=== PATIENT | female | born 1940 | race Caucasian/White ===

== ENCOUNTER 2021-12-20 11:58 | Inpatient (IN) ==
[2021-12-20] MEDS ORDERED: 0.9 % SODIUM CHLORIDE 500 ML IV ONE ×2 (13:09→14:53)
--- NOTE | 2021-12-20 13:20 | Emergency Department Note ---
Weakness HPI General Chief complaint: Weakness Stated complaint: failure to thrive, confusion Time Seen by Provider: 12/20/21 12:17 Source: other Mode of arrival: ambulatory Limitations: no limitations History of Present Illness HPI Narrative: Narrative: 81-year-old female with a past medical history of UTI and as below brought in by Adult Protective Services for patient to have very extreme weakness. 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 He has been with her for 40 years. Patient complain of right shoulder pain. No headache dizziness chest pain abdominal pain nausea vomiting constipation or diarrhea fever or chills. Related Data Previous Rx's Medication Instructions Recorded cefdinir 300 mg capsule 300 mg PO BID #10 caps 12/02/21 Allergies Allergy/AdvReac Type Severity Reaction Status Date / Time No Known Drug Allergies Allergy Unverified 04/13/15 12:35 Review of Systems ROS ROS Narrative: Narrative: All systems ED: reviewed and negative except as stated. Constitutional: Reports as per HPI PFSH Narrative Patient History Narrative: Narrative: Medical/Surgical/Family History All Active Problems (Updated 12/20/21 @ 14:53 by Richie Nava MD) Fecal impaction in rectum (Acute) Rhabdomyolysis (Acute) Acute UTI (Acute) Weakness (Acute) Dehydration (Acute) Decubitus ulcer (Acute) Herpes zoster (Acute) Medical History (Updated 12/20/21 @ 14:53 by Richie Nava MD) Fecal impaction in rectum Social History Smoking Status: Unknown if ever smoked Exam Narrative Narrative: Narrative: General Limitations: no limitations General appearance: Present alert and lethargic Head Head: Present atraumatic and normocephalic Eye Eye: Present normal appearance ENT ENT: Present mucous membranes dry Respiratory Respiratory: Present normal lung sounds bilaterally Cardiovascular Cardiovascular: Present regular rate, normal rhythm and normal heart sounds Adbominal Abdominal: Present soft and normal bowel sounds; Absent tenderness, guarding or organomegaly Extremities Extremities: Present tenderness (right shoulder, There a linera vasicular erythema left back/hip with crest formation. There are superficial ulcers on both hips) Neurological Neurological: Present alert Course Course Course Narrative: CBC, CMP, UA, lactic acid, troponin x-ray right shoulder were ordered. Patient was given 500 mL of normal saline IV. WBC is 11.6 with left shift, Lactic acid 2.4. Troponin negative. 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 UA is pending. Chest x-ray ordered. UA is consistent with UTI. Will give patient Cipro IV. Will admit patient to [facility] for further treatment and placement. Vital Signs Vital signs: Vital Signs Pulse Rate 49 L 12/20/21 12:28 Blood Pressure 113/90 12/20/21 12:28 Pulse Oximetry (%) 84 L 12/20/21 12:28 Pulse Rate 107 H 12/20/21 17:18 Respiratory Rate 16 12/20/21 17:18 Blood Pressure 102/50 12/20/21 16:01 Pulse Oximetry (%) 100 12/20/21 17:18 MDM MDM Narrative Medical decision making narrative: Narrative: Lab Data Result diagrams: 12/20/21 13:34 12/20/21 13:34 Labs: Lab Results 12/20/21 12/20/21 12/20/21 Range/Units 13:34 13:34 13:34 WBC 11.6 H (4.5-11.0) K/mcL RBC 4.83 (3.59-5.38) M/mcL Hgb 13.9 (11.2-15.7) g/dL Hct 46.1 H (34.1-44.9) % MCV 95.4 (80.0-100.0) fL MCH 28.8 (26.0-34.0) pg MCHC 30.2 L (31.0-36.0) g/dL RDW 13.9 (11.5-14.5) % Plt Count 403 (140-440) K/mcL MPV 10.9 (8.8-12.5) fL Immature Gran % (Auto) 0.3 (0.0-0.5) % Neut % (Auto) 71.3 (38.0-78.0) % Lymph % (Auto) 17.9 (15.5-49.0) % [place] % (Auto) 7.9 (1.0-12.0) % Eos % (Auto) 1.5 (0.0-7.0) % Baso % (Auto) 1.1 (0.0-2.0) % Lymph # (Auto) 2.07 (1.50-4.80) K/mcL [place] # (Auto) 0.91 H (0.10-0.90) K/mcL Eos # (Auto) 0.17 (0.00-0.70) K/mcL Baso # (Auto) 0.13 (0.00-0.30) K/mcL Immature Gran # 0.04 (0.00-0.05) K/mcl Absolute Neutrophils 8.23 H (1.80-8.00) K/mcL VBG Lactic Acid 2.4 H (0.5-2.0) mmol/L Sodium 158 H (133-145) mmol/L Potassium 4.0 (3.3-5.1) mmol/L Chloride 120 H (96-108) mmol/L Carbon Dioxide 29 (22-30) mmol/L Anion Gap 9.0 (8.0-16.0) BUN 33 H (8-23) mg/dL Creatinine 1.0 (0.6-1.1) mg/dL GFR Calculation 52 Glucose 103 (70-105) mg/dL Calcium 10.0 (8.6-10.4) mg/dL Total Bilirubin 0.5 (0.1-1.0) mg/dL AST 45 H (<32) U/L ALT 60 H (<40) U/L Alkaline Phosphatase 78 (39-117) U/L Troponin T 0.02 (<0.03) ng/mL Total Protein 7.9 (5.9-8.4) gm/dL Albumin 3.4 (3.2-5.2) gm/dL Globulin 4.5 H (2.2-3.7) gm/dL Albumin/Globulin Ratio 0.8 L (1.0-2.3) Urine Color Urine Appearance (Clear) Urine pH (5.0-9.0) Ur Specific [place] (1.000-1.035) Urine Protein (Negative) mg/dL Urine Glucose (UA) (Negative) mg/dL Urine Ketones (Negative) mg/dL Urine Occult Blood (Negative) mg/dL Urine Nitrate (Negative) Urine Bilirubin (Negative) mg/dL Urine Urobilinogen mg/dL Ur Leukocyte Esterase (Negative) /uL Urine RBC (0-3) /hpf Urine WBC (0-4) /hpf Ur Squamous Epith Cells (0-4) /hpf Urine Bacteria (0) /hpf Urine Mucus (None) /hpf Ur Culture Indicated? 12/20/21 Range/Units 14:52 WBC (4.5-11.0) K/mcL RBC (3.59-5.38) M/mcL Hgb (11.2-15.7) g/dL Hct (34.1-44.9) % MCV (80.0-100.0) fL MCH (26.0-34.0) pg MCHC (31.0-36.0) g/dL RDW (11.5-14.5) % Plt Count (140-440) K/mcL MPV (8.8-12.5) fL Immature Gran % (Auto) (0.0-0.5) % Neut % (Auto) (38.0-78.0) % Lymph % (Auto) (15.5-49.0) % [place] % (Auto) (1.0-12.0) % Eos % (Auto) (0.0-7.0) % Baso % (Auto) (0.0-2.0) % Lymph # (Auto) (1.50-4.80) K/mcL [place] # (Auto) (0.10-0.90) K/mcL Eos # (Auto) (0.00-0.70) K/mcL Baso # (Auto) (0.00-0.30) K/mcL Immature Gran # (0.00-0.05) K/mcl Absolute Neutrophils (1.80-8.00) K/mcL VBG Lactic Acid (0.5-2.0) mmol/L Sodium (133-145) mmol/L Potassium (3.3-5.1) mmol/L Chloride (96-108) mmol/L Carbon Dioxide (22-30) mmol/L Anion Gap (8.0-16.0) BUN (8-23) mg/dL Creatinine (0.6-1.1) mg/dL GFR Calculation Glucose (70-105) mg/dL Calcium (8.6-10.4) mg/dL Total Bilirubin (0.1-1.0) mg/dL AST (<32) U/L ALT (<40) U/L Alkaline Phosphatase (39-117) U/L Troponin T (<0.03) ng/mL Total Protein (5.9-8.4) gm/dL Albumin (3.2-5.2) gm/dL Globulin (2.2-3.7) gm/dL Albumin/Globulin Ratio (1.0-2.3) Urine Color Yellow Urine Appearance Hazy A (Clear) Urine pH 5.0 (5.0-9.0) Ur Specific [place] 1.025 (1.000-1.035) Urine Protein 30 A (Negative) mg/dL Urine Glucose (UA) Negative (Negative) mg/dL Urine Ketones Negative (Negative) mg/dL Urine Occult Blood 0.20 (Negative) mg/dL Urine Nitrate Negative (Negative) Urine Bilirubin Negative (Negative) mg/dL Urine Urobilinogen 4.0 A mg/dL Ur Leukocyte Esterase 75 A (Negative) /uL Urine RBC 60 H (0-3) /hpf Urine WBC 18 H (0-4) /hpf Ur Squamous Epith Cells 2 (0-4) /hpf Urine Bacteria None (0) /hpf Urine Mucus Many A (None) /hpf Ur Culture Indicated? yes Discharge Plan Patient/Caregiver Discharge Instructions Pt seen by MOLD INSPECTOR/PA only: No Clinical Impression: Weakness, Dehydration, Decubitus ulcer, Herpes zoster Patient Disposition: Xfer As Inpt ([facility]) Condition: Fair Follow up with: Weston Dempsey DO [Primary Care Provider] - Prescriptions: No Action cefdinir 300 mg capsule 300 mg PO BID Qty: 10 0RF
[2021-12-20 14:13] LABS: Basophils # (Auto) 0.13 K/mcL (0.00-0.30); Basophils % (Auto) 1.1 % (0.0-2.0); Eosinophils # (Auto) 0.17 K/mcL (0.00-0.70); Eosinophils % (Auto) 1.5 % (0.0-7.0); Hematocrit 46.1 % (34.1-44.9); Hemoglobin 13.9 g/dL (11.2-15.7); Lymphocytes # (Auto) 2.07 K/mcL (1.50-4.80); Lymphocytes % (Auto) 17.9 % (15.5-49.0); Mean Cell Volume 95.4 fL (80.0-100.0); Mean Corpuscular HGB Conc 30.2 g/dL (31.0-36.0); Mean Platelet Volume 10.9 fL (8.8-12.5); Monocytes # (Auto) 0.91 K/mcL (0.10-0.90); Monocytes % (Auto) 7.9 % (1.0-12.0); Neutrophils % (Auto) 71.3 % (38.0-78.0); Platelet Count 403 K/mcL (140-440); RBC 4.83 M/mcL (3.59-5.38); Red Cell Distribution Width 13.9 % (11.5-14.5); WBC 11.6 K/mcL (4.5-11.0)
--- NOTE | 2021-12-20 14:30 | XRay Report ---
CLINICAL INFORMATION: Pain COMPARISON: None. 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 No osseous abnormality. Soft tissues are normal. IMPRESSION: Degeneration Interpreted and Authenticated by: Maico Vazquez 12/20/21
[2021-12-20 14:37] LABS: ALT/SGPT 60 U/L (<40); AST/SGOT 45 U/L (<32); Albumin 3.4 gm/dL (3.2-5.2); Albumin/Globulin Ratio 0.8 (1.0-2.3); Alkaline Phosphatase 78 U/L (39-117); Bilirubin,Total 0.5 mg/dL (0.1-1.0); Blood Urea Nitrogen 33 mg/dL (8-23); Carbon Dioxide 29 mmol/L (22-30); Chloride 120 mmol/L (96-108); Globulin 4.5 gm/dL (2.2-3.7); Glomerular Filtration Rate 52; Glucose 103 mg/dL (70-105)
--- NOTE | 2021-12-20 15:10 | XRay Report ---
CLINICAL INFORMATION: Leukocytosis COMPARISON: None. TECHNIQUE: Portable FINDINGS: The heart size, mediastinum and pulmonary vessels are unremarkable. The lungs are clear right diaphragm is moderately elevated as before. There are no effusions. bilateral mastectomy noted.. IMPRESSION: No acute disease. Moderate chronic elevation right diaphragm Interpreted and Authenticated by: Maico Vazquez 12/20/21
[2021-12-20 16:16] LABS: Appearance,Urine HAZY (Clear); Bilirubin,Urine Negative (Negative); Color,Urine Yellow; Culture Indicated,Urine yes; Glucose,Urine (UA) Negative (Negative); Ketones,Urine Negative (Negative); Leukocyte Esterase,Urine 75 /uL (Negative); Mucus,Urine MANY /hpf; Nitrate,Urine Negative (Negative); Protein,Urine 30 mg/dL (Negative); Specific Gravity,Urine 1.025 (1.000-1.035); Urine RBC 60 /hpf (0-3); Urine Squamous Epithelial Cell 2 /hpf (0-4); Urine WBC 18 /hpf (0-4)
[2021-12-20] MEDS ORDERED: LEVOFLOXACIN 750 MG/150 ML BAG IV ONE (16:55)
--- NOTE | 2021-12-20 18:07 | Internal Med History&Physical ---
HPI History of Present Illness Patient information: Note initiated : 12/20/21 at 5:58 pm Service Date, if different from initiated Date: [] Patient: Emerita Giron a 81 y/o F admitted on for failure to thrive, confusion. Chief Complaint: [weakness, confusion] Chief complaint: weakness, confusion History of present illness: Ms. Giron is a 81 year old F no past medical history, presenting with weakness and confusions. The following history is severely limited by patient's clinical situations and lack of caregiver or family at the bedside. It was reported that patient's Drop of in the ED due to weakness and confusions. Patient is unable to give any further history. Tight patient is only making incomprehensible words upon questioning. It is unclear what is the patient's baseline mentations. Vital signs significant for tachycardia and tachypnea heart rate and rate of breathing in the 1 teens and mid 20s, respectively. Labs significant for leukocytosis with WBC 11.6. Serum sodium level 158. Serum chloride 120. Lactic acid 2.4. Urinalysis suggest the presence of urinary tract infections. Chest x-ray unremarkable. Review of Systems ROS unobtainable: due to mental status PFSH PFSH All Active Problems (Updated 12/20/21 @ 18:08 by Jerson Peraza MD) Clinical sepsis (Acute) Adult failure to thrive (Acute) Delirium (Acute) Hypernatremia (Acute) Fecal impaction in rectum (Acute) Rhabdomyolysis (Acute) Acute UTI (Acute) Weakness (Acute) Dehydration (Acute) Decubitus ulcer (Acute) Herpes zoster (Acute) Medical History (Updated 12/20/21 @ 18:08 by Jerson Peraza MD) Fecal impaction in rectum Social History smoking status: Unknown if ever smoked MEDS/ALLERGIES Home Medications and Allergies Home Medications Medication Instructions Recorded Confirmed Type cefdinir 300 mg capsule 300 mg PO BID #10 caps 12/02/21 Rx Allergies Allergy/AdvReac Type Severity Reaction Status Date / Time No Known Drug Allergies Allergy Unverified 04/13/15 12:35 EXAM Constitutional Vitals: Pulse Resp BP Pulse Ox 110 H 18 102/50 100 12/20/21 17:48 12/20/21 17:48 12/20/21 16:01 12/20/21 17:48 General appearance: disheveled, no acute distress and thin; no cooperative Head Head exam: Present atraumatic and normocephalic Eye Eye exam: Present EOMI and PERRL ENT ENT exam: Present mucous membranes moist, normal exam and normal external ear exam Neck Neck exam: Present normal inspection; Absent lymphadenopathy, tenderness or thyromegaly Respiratory Respiratory exam: Absent accessory muscle use, respiratory distress or wheezes Cardiovascular Cardiovascular exam: Present normal rate and rhythm; Absent JVD GI/Abdominal GI/Abdominal exam: Present normal bowel sounds and soft; Absent organomegaly or tenderness Extremities Exam Extremities exam: Present full ROM, normal capillary refill and normal inspection; Absent tenderness Neurological Exam Neurological exam: Present alert, altered and CN II-XII intact; Absent motor sensory deficit or oriented X3 Expanded Neurological Exam Coma Scale Verbal Response: Incomprehensible Psychiatric Additional comments: unable to assess due to clinical situations Skin Skin exam: Present dry and intact DATA Data Completed and Pending Labs: Labs from last 24 hours 12/20/21 12/20/21 12/20/21 14:52 13:34 13:34 WBC RBC Hgb Hct MCV MCH MCHC RDW Plt Count MPV Immature Gran % (Auto) Neut % (Auto) Lymph % (Auto) [place] % (Auto) Eos % (Auto) Baso % (Auto) Lymph # (Auto) [place] # (Auto) Eos # (Auto) Baso # (Auto) Immature Gran # Absolute Neutrophils VBG Lactic Acid 2.4 H Sodium 158 H Potassium 4.0 Chloride 120 H Carbon Dioxide 29 Anion Gap 9.0 BUN 33 H Creatinine 1.0 GFR Calculation 52 Glucose 103 Calcium 10.0 Total Bilirubin 0.5 AST 45 H ALT 60 H Alkaline Phosphatase 78 Troponin T 0.02 Total Protein 7.9 Albumin 3.4 Globulin 4.5 H Albumin/Globulin Ratio 0.8 L Urine Color Yellow Urine Appearance Hazy A Urine pH 5.0 Ur Specific [place] 1.025 Urine Protein 30 A Urine Glucose (UA) Negative Urine Ketones Negative Urine Occult Blood 0.20 Urine Nitrate Negative Urine Bilirubin Negative Urine Urobilinogen 4.0 A Ur Leukocyte Esterase 75 A Urine RBC 60 H Urine WBC 18 H Ur Squamous Epith Cells 2 Urine Bacteria None Urine Mucus Many A Ur Culture Indicated? yes 12/20/21 13:34 WBC 11.6 H RBC 4.83 Hgb 13.9 Hct 46.1 H MCV 95.4 MCH 28.8 MCHC 30.2 L RDW 13.9 Plt Count 403 MPV 10.9 Immature Gran % (Auto) 0.3 Neut % (Auto) 71.3 Lymph % (Auto) 17.9 [place] % (Auto) 7.9 Eos % (Auto) 1.5 Baso % (Auto) 1.1 Lymph # (Auto) 2.07 [place] # (Auto) 0.91 H Eos # (Auto) 0.17 Baso # (Auto) 0.13 Immature Gran # 0.04 Absolute Neutrophils 8.23 H VBG Lactic Acid Sodium Potassium Chloride Carbon Dioxide Anion Gap BUN Creatinine GFR Calculation Glucose Calcium Total Bilirubin AST ALT Alkaline Phosphatase Troponin T Total Protein Albumin Globulin Albumin/Globulin Ratio Urine Color Urine Appearance Urine pH Ur Specific [place] Urine Protein Urine Glucose (UA) Urine Ketones Urine Occult Blood Urine Nitrate Urine Bilirubin Urine Urobilinogen Ur Leukocyte Esterase Urine RBC Urine WBC Ur Squamous Epith Cells Urine Bacteria Urine Mucus Ur Culture Indicated? A/P Assessment and plan (1) Acute UTI: Status: Acute (2) Dehydration: Status: Acute (3) Hypernatremia: Status: Acute (4) Delirium: Status: Acute (5) Adult failure to thrive: Status: Acute (6) Clinical sepsis: Status: Acute Sepsis Sepsis Identified: Yes Time Zero: . Narrative A/P Narrative: Assessment and Plans: 1. UTI with clinical sepsis: Inpatient PCU s/p 2L NS bolus given in the ED, to be followed by 1/2NS@75cc/hr Serial lactic acid Procalcitonin Blood culture Urine culture cbc w/ auto diff in the morning to trend WBC Rocephin Physical therapy Occupational therapy 2. Acute delirium: DDx: dementia, undiagnosed/underdiagnosed Treat reversible causes such as infection, see #1 Frequent reorientation during the day Screening for serum ammonia level CT head w/o 3. Adult failure to thrive: Adult protective service notified Dietitian referral 4. Hypernatremia with dehydration: s/p 2L NS bolus given in the ED, to be followed by 1/2NS@75cc/hr Daily CMP to trend serum sodium level GI ppx: not currently indicated DVT ppx: Lovenox Code status: Full Prognosis: guarded Disposition: inpatient PCU; PT OT Time Spent With Patient Time: Total time spent is greater than 50% in coordination of care (as documented) at patient's floor/unit and/or counseling patient: Total time spent with greater than 50% in coordination of care (as documented) at patient's floor/unit and/or counseling patient:: 50 - 70 minutes
[2021-12-20] MEDS ORDERED: ONDANSETRON 4 MG/2 ML VIAL IV PRN (19:14)
[2021-12-20] MEDS ORDERED: SENNOSIDES 1 TABLET PO PRN (19:14)
[2021-12-20] MEDS ORDERED: IPRATROPIUM/ALBUTEROL 3 ML AMPUL.NEB NEB PRN (19:14)
[2021-12-20] MEDS ORDERED: LACTULOSE 20 GM/30 ML ORAL.SOL PO PRN (19:14)
[2021-12-20] MEDS ORDERED: cefTRIAXone 1 GM in DEXTROSE 5% IN WATER 50 ML IV SCH (19:14)
[2021-12-20] MEDS ORDERED: diphenhydrAMINE 25 MG CAPSULE PO PRN (19:18)
[2021-12-20] MEDS: 0.45 % SODIUM CHLORIDE 1,000 ML IV SCH (19:39)
[2021-12-20] MEDS ORDERED: morphine 2 MG/ML VIAL IV PRN (19:40)
[2021-12-20] MEDS: cefTRIAXone 1 GM VIAL IV SCH (20:10)
[2021-12-20] MEDS: 0.9 % SODIUM CHLORIDE 10 ML SYRINGE IV SCH (20:11)
[2021-12-20] MEDS: DOCUSATE SODIUM 100 MG CAPSULE PO SCH (20:11)
[2021-12-21] MEDS: 0.9 % SODIUM CHLORIDE 10 ML SYRINGE IV SCH ×3 (05:13→22:45)
[2021-12-21] MEDS: cefTRIAXone 1 GM VIAL IV SCH (09:43)
[2021-12-21] MEDS: ENOXAPARIN 30 MG/0.3 ML SYRINGE SQ SCH (09:43)
[2021-12-21] MEDS: DOCUSATE SODIUM 100 MG CAPSULE PO SCH ×3 (09:43→21:16)
[2021-12-21] MEDS: ACETAMINOPHEN 325 MG TABLET PO PRN (09:43)
[2021-12-21 10:00] LABS: Basophils % (Auto) 1.2 % (0.0-2.0); Eosinophils # (Auto) 0.18 K/mcL (0.00-0.70); Eosinophils % (Auto) 2.1 % (0.0-7.0); Lymphocytes # (Auto) 1.61 K/mcL (1.50-4.80); Lymphocytes % (Auto) 19.1 % (15.5-49.0); Mean Cell Volume 98.3 fL (80.0-100.0); Mean Platelet Volume 11.4 fL (8.8-12.5); Monocytes # (Auto) 0.76 K/mcL (0.10-0.90); Neutrophils % (Auto) 68.2 % (38.0-78.0); Platelet Count 320 K/mcL (140-440); RBC 4.07 M/mcL (3.59-5.38); Red Cell Distribution Width 13.9 % (11.5-14.5); WBC 8.4 K/mcL (4.5-11.0)
[2021-12-21 10:03] LABS: ALT/SGPT 43 U/L (<40); AST/SGOT 33 U/L (<32); Albumin 2.9 gm/dL (3.2-5.2); Albumin/Globulin Ratio 0.8 (1.0-2.3); Alkaline Phosphatase 65 U/L (39-117); Bilirubin,Total 0.5 mg/dL (0.1-1.0); Blood Urea Nitrogen 26 mg/dL (8-23); Carbon Dioxide 24 mmol/L (22-30); Chloride 121 mmol/L (96-108); Globulin 3.6 gm/dL (2.2-3.7); Glomerular Filtration Rate 52; Glucose 85 mg/dL (70-105); Phosphorous 2.7 mg/dL (2.5-4.5)
--- NOTE | 2021-12-21 14:20 | Internal Med Progress Note ---
SUBJECTIVE Subjective Patient information: Note initiated : 12/21/21 at 2:14 pm Service Date, if different from initiated Date: [] Patient: Emerita Giron a 81 y/o F admitted on 12/20/21 for failure to thrive, confusion. Chief Complaint: [] Interval history: Ms. Giron is a 81 year old F no past medical history, presenting with weakness and confusions. The following history is severely limited by patient's clinical situations and lack of caregiver or family at the bedside. It was reported that patient's Drop of in the ED due to weakness and confusions. Patient is unable to give any further history. Tight patient is only making incomprehensible words upon questioning. It is unclear what is the patient's baseline mentations. Vital signs significant for tachycardia and tachypnea heart rate and rate of breathing in the 1 teens and mid 20s, respectively. Labs significant for leukocytosis with WBC 11.6. Serum sodium level 158. Serum chloride 120. Lactic acid 2.4. Urinalysis suggest the presence of urinary tract infections. Chest x-ray unremarkable. 12/21: Serum sodium level 154 this morning, down from 158 at the time of admissions. Serum ammonia level 32. Blood and urine cultures no growth to date. Patient is lethargic and nonverbal this afternoon. Pending physical therapy Occupational Therapy evaluation and treatment for placement pending. Continue 1/2NS@50cc/hr. Repeat serum sodium this afternoon @3pm. Adult protective service investigation pending. Constitutional Vitals: Vital Signs Temp Pulse Resp BP Pulse Ox O2 Del Method O2 Flow Rate 36.3 C 93 H 17 116/72 96 0 12/21/21 12:04 12/21/21 12:04 12/21/21 12:04 12/21/21 12:04 12/21/21 12:04 12/21/21 12:04 12/21/21 00:02 Period Temp Pulse Resp BP Sys/Beard Pulse Ox O2 Del Method O2 Flow Rate Last 24 Hr 36.3 C-36.8 C 93-140 13-25 90-127/47-105 86-100 Room Air-Room Air 0-0 Intake and Output 12/21/21 12/21/21 12/21/21 05:59 13:59 21:59 Intake Total 200 Output Total 1 1 Balance -1 199 Weight 38.374 kg Patient Weight 12/22/21 05:59 Weight 38.374 kg Intake & Output: Intake & Output 12/21/21 12/21/21 12/21/21 05:59 13:59 21:59 Intake Total 200 Output Total 1 1 Balance -1 199 Weight 38.374 kg Intake: Nourishment/Supplement quantity 200 (ml) Output: # of times incontinent of urine 1 1 Other: Meal Lunch Percent of Meal Consumed 10% Feeding Ability Total Assistance Nourishment/Supplement name Ensure Urine Appearance Clear Urine Color Dark Yellow Urine Odor Strong # Voids 1 # Bowel Movements 0 General appearance: disheveled and thin Head Head exam: Present atraumatic and normal inspection Eye Eye exam: Present normal appearance ENT ENT exam: Present mucous membranes moist, normal exam and normal external ear exam Neck Neck exam: Present normal inspection Respiratory Respiratory exam: Present normal respiratory exam Cardiovascular Cardiovascular exam: Present normal rate and rhythm GI/Abdominal GI/Abdominal exam: Present normal bowel sounds Back Exam Back exam: Present normal inspection Neurological Exam Neurological exam: Present alert and altered; Absent oriented X3 Additional comments: non verbal Psychiatric Additional comments: Not assessed due to clinical situations Skin Skin exam: Present intact and warm OBJ DATA Labs CBC & Chem 7: 12/21/21 05:04 12/21/21 05:04 Labs: Abnormal Lab Results 12/21/21 12/21/21 12/20/21 05:04 05:04 14:52 WBC Hct MCHC 30.0 L [place] # (Auto) Absolute Neutrophils VBG Lactic Acid Sodium 154 H Chloride 121 H BUN 26 H AST 33 H ALT 43 H Albumin 2.9 L Globulin Albumin/Globulin Ratio 0.8 L Urine Appearance Hazy A Urine Protein 30 A Urine Urobilinogen 4.0 A Ur Leukocyte Esterase 75 A Urine RBC 60 H Urine WBC 18 H Urine Mucus Many A 12/20/21 12/20/21 13:34 13:34 WBC 11.6 H Hct 46.1 H MCHC 30.2 L [place] # (Auto) 0.91 H Absolute Neutrophils 8.23 H VBG Lactic Acid 2.4 H Sodium 158 H Chloride 120 H BUN 33 H AST 45 H ALT 60 H Albumin Globulin 4.5 H Albumin/Globulin Ratio 0.8 L Urine Appearance Urine Protein Urine Urobilinogen Ur Leukocyte Esterase Urine RBC Urine WBC Urine Mucus Meds: Medications Acetaminophen (Acetaminophen 325 Mg Tablet) 650 mg PO Q6HP PRN; Protocol PRN Reason: Per Pain Protocol/Fever > 101 Last Admin: 12/21/21 09:43 Dose: 650 mg Albuterol/Ipratropium (Ipratropium/Albuterol 3 Ml Ampul.Neb) 3 ml NEB Q4HRT PRN PRN Reason: Wheezing Carvedilol (Carvedil[facility] 12.5 Mg Tablet) [facility] Ceft[facility]ax[facility] Sodium (Ceftriaxone 1 Gm Vial) 1 gm IV Q24H [facility] Last Admin: 12/21/21 09:43 Dose: 1 gm Diphenhydramine HCl (Diphenhydramine 25 Mg Capsule) 25 mg PO Q6HP PRN PRN Reason: Itching Docusate Sodium (Docusate Sodium 100 Mg Capsule) 100 mg PO BID [facility] Last Admin: 12/21/21 10:20 Dose: Not Given Enoxaparin Sodium (Enoxaparin 30 Mg/0.3 Ml Syringe) 30 mg SQ DAILY [facility] Last Admin: 12/21/21 09:43 Dose: 30 mg Sodium Chloride (Sodium Chloride 0.45%) 1,000 mls @ 50 mls/hr IV .Q20H [facility] Last Admin: 12/20/21 19:39 Dose: 50 mls/hr Lactulose (Lactulose 20 Gm/30 Ml Oral.Sarah) 10 gm PO DAILYP PRN PRN Reason: Constipation Morphine Sulfate (Morphine 2 Mg/Ml Vial) 2 mg IV Q4HP PRN; Protocol PRN Reason: Per Pain Protocol Last Admin: 12/20/21 20:10 Dose: 2 mg Ondansetron HCl (Ondansetron 4 Mg/2 Ml Vial) 4 mg IV Q4HP PRN; Protocol PRN Reason: Nausea And Vomiting Senna (Sennosides 1 Tablet) 2 tab PO HSP PRN PRN Reason: Constipation Sodium Chloride (0.9 % Sodium Chloride 10 Ml Syringe) 10 ml IV Q8 [facility] Last Admin: 12/21/21 05:13 Dose: Not Given A/P Assessment and plan (1) Acute UTI: Status: Acute (2) Dehydration: Status: Acute (3) Hypernatremia: Status: Acute (4) Delirium: Status: Acute (5) Adult failure to thrive: Status: Acute (6) Clinical sepsis: Status: Acute Narrative A/P Narrative: Assessment and Plans: 1. UTI with clinical sepsis: Inpatient PCU 1/2NS@50cc/hr Serial lactic acid Procalcitonin Blood culture, no growth to date Urine culture, no growth to date cbc w/ auto diff in the morning to trend WBC Rocephin Physical therapy Occupational therapy 2. Acute delirium: DDx: dementia, undiagnosed/underdiagnosed Treat reversible causes such as infection, see #1 Frequent reorientation during the day Screening for serum ammonia level-->32, within normal limits CT head w/o--> unable to perform 3. Adult failure to thrive: Adult protective service notified Dietitian referral Speech therapy 4. Hypernatremia with dehydration: s/p 2L NS bolus given in the ED, to be followed by 1/2NS@50cc/hr Daily CMP to trend serum sodium level Will also repeat serum sodium level this afternoon @3pm GI ppx: not currently indicated DVT ppx: Lovenox Code status: Full Prognosis: guarded Disposition: inpatient PCU; PT OT SLT Time Spent With Patient Time: Total time spent is greater than 50% in coordination of care (as documented) at patient's floor/unit and/or counseling patient: Total time spent with greater than 50% in coordination of care (as documented) at patient's floor/unit and/or counseling patient:: 25 - 35 minutes
[2021-12-21] MEDS: 0.45 % SODIUM CHLORIDE 1,000 ML IV SCH (15:04)
[2021-12-21] MEDS: CARVEDILOL 12.5 MG TABLET PO SCH (17:49)
[2021-12-22] MEDS: 0.9 % SODIUM CHLORIDE 10 ML SYRINGE IV SCH ×3 (05:15→21:35)
[2021-12-22 07:04] LABS: Basophils # (Auto) 0.08 K/mcL (0.00-0.30); Eosinophils # (Auto) 0.29 K/mcL (0.00-0.70); Eosinophils % (Auto) 3.7 % (0.0-7.0); Hematocrit 36.8 % (34.1-44.9); Lymphocytes % (Auto) 25.4 % (15.5-49.0); Mean Cell Volume 97.4 fL (80.0-100.0); Mean Corpuscular HGB Conc 29.9 g/dL (31.0-36.0); Mean Platelet Volume 11.2 fL (8.8-12.5); Monocytes # (Auto) 0.67 K/mcL (0.10-0.90); Monocytes % (Auto) 8.5 % (1.0-12.0); Platelet Count 278 K/mcL (140-440); RBC 3.78 M/mcL (3.59-5.38); Red Cell Distribution Width 13.9 % (11.5-14.5); WBC 7.9 K/mcL (4.5-11.0)
[2021-12-22 07:28] LABS: ALT/SGPT 36 U/L (<40); AST/SGOT 26 U/L (<32); Albumin 2.7 gm/dL (3.2-5.2); Albumin/Globulin Ratio 0.8 (1.0-2.3); Alkaline Phosphatase 60 U/L (39-117); Bilirubin,Total 0.4 mg/dL (0.1-1.0); Blood Urea Nitrogen 23 mg/dL (8-23); Calcium 8.7 mg/dL (8.6-10.4); Carbon Dioxide 22 mmol/L (22-30); Chloride 117 mmol/L (96-108); Globulin 3.4 gm/dL (2.2-3.7); Glomerular Filtration Rate 68; Glucose 86 mg/dL (70-105); Phosphorous 1.8 mg/dL (2.5-4.5)
[2021-12-22] MEDS: ACETAMINOPHEN 325 MG TABLET PO PRN (08:13)
[2021-12-22] MEDS: ENOXAPARIN 30 MG/0.3 ML SYRINGE SQ SCH (08:13)
[2021-12-22] MEDS: DOCUSATE SODIUM 100 MG CAPSULE PO SCH ×2 (08:13→21:35)
[2021-12-22] MEDS: CARVEDILOL 12.5 MG TABLET PO SCH ×2 (08:13→17:14)
[2021-12-22] MEDS: cefTRIAXone 1 GM VIAL IV SCH (08:55)
[2021-12-22] MEDS: 0.45 % SODIUM CHLORIDE 1,000 ML IV SCH (11:04)
[2021-12-22] MEDS ORDERED: POTASSIUM PHOSPHATE 20 MEQ in DEXTROSE 5% IN WATER 250 ML IV ONE (13:12)
--- NOTE | 2021-12-22 13:17 | Internal Med Progress Note ---
SUBJECTIVE Subjective Patient information: Note initiated : 12/22/21 at 1:13 pm Service Date, if different from initiated Date: [] Patient: Emerita Giron a 81 y/o F admitted on 12/20/21 for failure to thrive, confusion. Chief Complaint: [] Interval history: Ms. Giron is a 81 year old F no past medical history, presenting with weakness and confusions. The following history is severely limited by patient's clinical situations and lack of caregiver or family at the bedside. It was reported that patient's Drop of in the ED due to weakness and confusions. Patient is unable to give any further history. Tight patient is only making incomprehensible words upon questioning. It is unclear what is the patient's baseline mentations. Vital signs significant for tachycardia and tachypnea heart rate and rate of breathing in the 1 teens and mid 20s, respectively. Labs significant for leukocytosis with WBC 11.6. Serum sodium level 158. Serum chloride 120. Lactic acid 2.4. Urinalysis suggest the presence of urinary tract infections. Chest x-ray unremarkable. 12/21: Serum sodium level 154 this morning, down from 158 at the time of admissions. Serum ammonia level 32. Blood and urine cultures no growth to date. Patient is lethargic and nonverbal this afternoon. Pending physical therapy Occupational Therapy evaluation and treatment for placement pending. Continue 1/2NS@50cc/hr. Repeat serum sodium this afternoon @3pm. Adult protective service investigation pending. 12/22: Serum sodium level 149 this morning, down from 154 at the time of admissions. Serum phosphorous level 1.8. Blood and urine cultures no growth to date. P ending physical therapy Occupational Therapy evaluation and treatment for placement pending. Continue 1/2NS@50cc/hr. Repeat serum sodium this afternoon @3pm. Adult protective service investigation pending. Constitutional Vitals: Vital Signs Temp Pulse Resp BP Pulse Ox O2 Del Method O2 Flow Rate 36.3 C 80 14 102/54 99 0 12/22/21 12:00 12/22/21 00:01 12/22/21 12:00 12/22/21 12:00 12/22/21 12:00 12/22/21 05:31 12/21/21 00:02 Period Temp Pulse Resp BP Sys/Beard Pulse Ox O2 Del Method O2 Flow Rate Last 24 Hr 36.1 C-37.1 C 80-107 14-26 80-150/49-109 91-100 Room Air-Room Air Intake and Output 12/21/21 12/22/21 12/22/21 21:59 05:59 13:59 Intake Total 1240 1840 Output Total 1 2 Balance 1239 -2 1840 Weight 39.236 kg Intake & Output: Intake & Output 12/21/21 12/22/21 12/22/21 21:59 05:59 13:59 Intake Total 1240 1840 Output Total 1 2 Balance 1239 -2 1840 Weight 39.236 kg Intake: Nourishment/Supplement quantity 240 480 (ml) IV 1000 1000 Sodium Chloride 0.45% 1,000 ml 1000 1000 @ 50 mls/hr IV .Q20H [facility] Rx#: [id number] Oral 360 Output: # of times incontinent of urine 1 2 Other: Meal Dinner Apple sauce Breakfast Percent of Meal Consumed 75% 100% 95 Feeding Ability Total Assistance Total Assistance Independent Nourishment/Supplement name Magic cup and ensure Ensure and Magic Cup Urine Appearance Clear Urine Color Dark Yellow Urine Odor Foul # Bowel Movements 0 Head Head exam: Present atraumatic and normal inspection Eye Eye exam: Present normal appearance ENT ENT exam: Present mucous membranes moist, normal exam and normal external ear exam Neck Neck exam: Present normal inspection Respiratory Respiratory exam: Present normal respiratory exam Cardiovascular Cardiovascular exam: Present normal rate and rhythm GI/Abdominal GI/Abdominal exam: Present normal bowel sounds Back Exam Back exam: Present normal inspection Neurological Exam Neurological exam: Present alert and altered; Absent oriented X3 Skin Skin exam: Present intact and warm OBJ DATA Labs CBC & Chem 7: 12/22/21 05:20 12/22/21 05:20 Labs: Abnormal Lab Results 12/22/21 12/22/21 12/21/21 05:20 05:20 15:51 WBC Hgb 11.0 L Hct MCHC 29.9 L [place] # (Auto) Absolute Neutrophils VBG Lactic Acid Sodium 149 H 157 H Chloride 117 H BUN Phosphorus 1.8 L AST ALT Albumin 2.7 L Globulin Albumin/Globulin Ratio 0.8 L Urine Appearance Urine Protein Urine Urobilinogen Ur Leukocyte Esterase Urine RBC Urine WBC Urine Mucus 12/21/21 12/21/21 12/20/21 05:04 05:04 14:52 WBC Hgb Hct MCHC 30.0 L [place] # (Auto) Absolute Neutrophils VBG Lactic Acid Sodium 154 H Chloride 121 H BUN 26 H Phosphorus AST 33 H ALT 43 H Albumin 2.9 L Globulin Albumin/Globulin Ratio 0.8 L Urine Appearance Hazy A Urine Protein 30 A Urine Urobilinogen 4.0 A Ur Leukocyte Esterase 75 A Urine RBC 60 H Urine WBC 18 H Urine Mucus Many A 12/20/21 12/20/21 13:34 13:34 WBC 11.6 H Hgb Hct 46.1 H MCHC 30.2 L [place] # (Auto) 0.91 H Absolute Neutrophils 8.23 H VBG Lactic Acid 2.4 H Sodium 158 H Chloride 120 H BUN 33 H Phosphorus AST 45 H ALT 60 H Albumin Globulin 4.5 H Albumin/Globulin Ratio 0.8 L Urine Appearance Urine Protein Urine Urobilinogen Ur Leukocyte Esterase Urine RBC Urine WBC Urine Mucus Meds: Medications Acetaminophen (Acetaminophen 325 Mg Tablet) 650 mg PO Q6HP PRN; Protocol PRN Reason: Per Pain Protocol/Fever > 101 Last Admin: 12/22/21 08:13 Dose: 650 mg Albuterol/Ipratropium (Ipratropium/Albuterol 3 Ml Ampul.Neb) 3 ml NEB Q4HRT PRN PRN Reason: Wheezing Carvedilol ([facility] 12.5 Mg [facility]t) [facility] Last Admin: 12/22/21 08:13 Dose: 12.5 mg Ceftriaxone Sodium (Ceftriaxone 1 Gm Vial) 1 gm IV Q24H [facility] Last Admin: 12/22/21 08:55 Dose: 1 gm Diphenhydramine HCl (Diphenhydramine 25 Mg Capsule) 25 mg PO Q6HP PRN PRN Reason: Itching Last Admin: 12/21/21 21:56 Dose: 25 mg Docusate Sodium (Docusate Sodium 100 Mg Capsule) 100 mg PO BID [facility] Last Admin: 12/22/21 08:13 Dose: 100 mg Enoxaparin Sodium (Enoxaparin 30 Mg/0.3 Ml Syringe) 30 mg SQ DAILY [facility] Last Admin: 12/22/21 08:13 Dose: 30 mg Sodium Chloride (Sodium Chloride 0.45%) 1,000 mls @ 50 mls/hr IV .Q20H [facility] Last Admin: 12/22/21 11:04 Dose: 50 mls/hr Lactulose (Lactulose 20 Gm/30 Ml Oral.Sarah) 10 gm PO DAILYP PRN PRN Reason: Constipation Morphine Sulfate (Morphine 2 Mg/Ml Vial) 2 mg IV Q4HP PRN; Protocol PRN Reason: Per Pain Protocol Last Admin: 12/20/21 20:10 Dose: 2 mg Ondansetron HCl (Ondansetron 4 Mg/2 Ml Vial) 4 mg IV Q4HP PRN; Protocol PRN Reason: Nausea And Vomiting Senna (Sennosides 1 Tablet) 2 tab PO HSP PRN PRN Reason: Constipation Sodium Chloride (0.9 % Sodium Chloride 10 Ml Syringe) 10 ml IV Q8 [facility] Last Admin: 12/22/21 05:15 Dose: 10 ml A/P Assessment and plan (1) Acute UTI: Status: Acute (2) Dehydration: Status: Acute (3) Hypernatremia: Status: Acute (4) Delirium: Status: Acute (5) Adult failure to thrive: Status: Acute (6) Clinical sepsis: Status: Acute Narrative A/P Narrative: Assessment and Plans: 1. UTI with clinical sepsis: Inpatient PCU 1/2NS@50cc/hr Serial lactic acid Procalcitonin Blood culture, no growth to date Urine culture, no growth to date cbc w/ auto diff in the morning to trend WBC Rocephin Physical therapy Occupational therapy 2. Acute delirium: DDx: dementia, undiagnosed/underdiagnosed Treat reversible causes such as infection, see #1 Frequent reorientation during the day Screening for serum ammonia level-->32, within normal limits CT head w/o--> unable to perform 3. Adult failure to thrive: Adult protective service notified Dietitian referral Speech therapy 4. Hypernatremia with dehydration: s/p 2L NS bolus given in the ED, to be followed by 1/2NS@50cc/hr Daily CMP to trend serum sodium level Will also repeat serum sodium level this afternoon @3pm GI ppx: not currently indicated DVT ppx: Lovenox Code status: Full Prognosis: guarded Disposition: inpatient PCU; PT OT SLT Time Spent With Patient Time: Total time spent is greater than 50% in coordination of care (as documented) at patient's floor/unit and/or counseling patient: Total time spent with greater than 50% in coordination of care (as documented) at patient's floor/unit and/or counseling patient:: 25 - 35 minutes
[2021-12-22 16:20] LABS: Blood Urea Nitrogen 26 mg/dL (8-23); Calcium 8.3 mg/dL (8.6-10.4); Carbon Dioxide 23 mmol/L (22-30); Chloride 113 mmol/L (96-108); Glomerular Filtration Rate 68; Glucose 102 mg/dL (70-105)
[2021-12-23] MEDS: 0.9 % SODIUM CHLORIDE 10 ML SYRINGE IV SCH ×3 (05:28→20:06)
[2021-12-23 07:29] LABS: Basophils # (Auto) 0.08 K/mcL (0.00-0.30); Basophils % (Auto) 1.1 % (0.0-2.0); Eosinophils # (Auto) 0.34 K/mcL (0.00-0.70); Eosinophils % (Auto) 4.8 % (0.0-7.0); Hematocrit 33.8 % (34.1-44.9); Hemoglobin 10.5 g/dL (11.2-15.7); Lymphocytes # (Auto) 2.23 K/mcL (1.50-4.80); Lymphocytes % (Auto) 31.2 % (15.5-49.0); Mean Cell Volume 94.2 fL (80.0-100.0); Mean Corpuscular HGB Conc 31.1 g/dL (31.0-36.0); Mean Platelet Volume 11.7 fL (8.8-12.5); Neutrophils % (Auto) 55.6 % (38.0-78.0); Platelet Count 227 K/mcL (140-440); RBC 3.59 M/mcL (3.59-5.38); Red Cell Distribution Width 13.6 % (11.5-14.5); WBC 7.1 K/mcL (4.5-11.0)
[2021-12-23 08:13] LABS: ALT/SGPT 27 U/L (<40); AST/SGOT 18 U/L (<32); Albumin 2.5 gm/dL (3.2-5.2); Albumin/Globulin Ratio 0.8 (1.0-2.3); Alkaline Phosphatase 55 U/L (39-117); Bilirubin,Total 0.2 mg/dL (0.1-1.0); Blood Urea Nitrogen 19 mg/dL (8-23); Calcium 8.4 mg/dL (8.6-10.4); Carbon Dioxide 24 mmol/L (22-30); Chloride 109 mmol/L (96-108); Glomerular Filtration Rate 80; Glucose 78 mg/dL (70-105); Phosphorous 2.4 mg/dL (2.5-4.5)
[2021-12-23] MEDS: CARVEDILOL 12.5 MG TABLET PO SCH ×2 (08:59→18:02)
[2021-12-23] MEDS: ENOXAPARIN 30 MG/0.3 ML SYRINGE SQ SCH (08:59)
[2021-12-23] MEDS: DOCUSATE SODIUM 100 MG CAPSULE PO SCH ×2 (08:59→20:05)
[2021-12-23] MEDS: cefTRIAXone 1 GM VIAL IV SCH (09:06)
--- NOTE | 2021-12-23 10:56 | Internal Med Progress Note ---
SUBJECTIVE Subjective Patient information: Note initiated : 12/23/21 at 10:53 am Service Date, if different from initiated Date: [] Patient: Emerita Giron a 81 y/o F admitted on 12/20/21 for failure to thrive, confusion. Chief Complaint: [] Interval history: Ms. Giron is a 81 year old F no past medical history, presenting with weakness and confusions. The following history is severely limited by patient's clinical situations and lack of caregiver or family at the bedside. It was reported that patient's Drop of in the ED due to weakness and confusions. Patient is unable to give any further history. Tight patient is only making incomprehensible words upon questioning. It is unclear what is the patient's baseline mentations. Vital signs significant for tachycardia and tachypnea heart rate and rate of breathing in the 1 teens and mid 20s, respectively. Labs significant for leukocytosis with WBC 11.6. Serum sodium level 158. Serum chloride 120. Lactic acid 2.4. Urinalysis suggest the presence of urinary tract infections. Chest x-ray unremarkable. 12/21: Serum sodium level 154 this morning, down from 158 at the time of admissions. Serum ammonia level 32. Blood and urine cultures no growth to date. Patient is lethargic and nonverbal this afternoon. Pending physical therapy Occupational Therapy evaluation and treatment for placement pending. Continue 1/2NS@50cc/hr. Repeat serum sodium this afternoon @3pm. Adult protective service investigation pending. 12/22: Serum sodium level 149 this morning, down from 154 at the time of admissions. Serum phosphorous level 1.8. Blood and urine cultures no growth to date. Pending physical therapy Occupational Therapy evaluation and treatment for placement pending. Continue 1/2NS@50cc/hr. Repeat serum sodium this afternoon @3pm. Adult protective service investigation pending. 12/23: Serum sodium level 141 this morning. Serum phosphorous level 2.4. Blood and urine cultures no growth to date. Pending physical therapy Occupational Therapy evaluation and treatment for placement pending. Saline lock. Continue Rocephin for UTI. Transfer to med surg. Constitutional Vitals: Vital Signs Temp Pulse Resp BP Pulse Ox O2 Del Method O2 Flow Rate 36.3 C 80 18 107/69 93 0 12/23/21 08:00 12/22/21 00:01 12/23/21 09:02 12/23/21 09:02 12/23/21 09:02 12/23/21 01:39 12/21/21 00:02 Period Temp Pulse Resp BP Sys/Beard Pulse Ox O2 Del Method O2 Flow Rate Last 24 Hr 36.1 C-36.5 C 14-20 69-115/44-82 93-100 Room Air-Room Air Intake and Output 12/22/21 12/23/21 12/23/21 21:59 05:59 13:59 Intake Total 1152.5455 550 240 Output Total 1 1 Balance 1151.5455 549 240 Weight 39.122 kg Intake & Output: Intake & Output 12/22/21 12/23/21 12/23/21 21:59 05:59 13:59 Intake Total 1152.5455 550 240 Output Total 1 1 Balance 1151.5455 549 240 Weight 39.122 kg Intake: Nourishment/Supplement quantity 360 (ml) IV 672.5455 Sodium Chloride 0.45% 1,000 ml 418 @ 50 mls/hr IV .Q20H [facility] Rx#: [id number] Potassium Phosphate 20 Meq In 254.5455 Dextrose 5% in Water 250 ml @ 127.273 mls/hr IV ONCE ONE Rx#: [id number] Oral 120 550 240 Output: # of times incontinent of urine 1 1 Other: Meal Dinner Breakfast Percent of Meal Consumed 25% 10 Feeding Ability Total Assistance Total Assistance Nourishment/Supplement name Ensure and Magic Cup Urine Color Dark Yellow Dark Yellow Urine Odor Normal # Voids 1 1 General appearance: disheveled and thin Head Head exam: Present atraumatic and normal inspection Eye Eye exam: Present normal appearance ENT ENT exam: Present mucous membranes moist, normal exam and normal external ear exam Neck Neck exam: Present normal inspection Respiratory Respiratory exam: Present normal respiratory exam Cardiovascular Cardiovascular exam: Present normal rate and rhythm GI/Abdominal GI/Abdominal exam: Present normal bowel sounds Back Exam Back exam: Present normal inspection Neurological Exam Neurological exam: Present altered; Absent oriented X3 Skin Skin exam: Present intact and warm OBJ DATA Labs CBC & Chem 7: 12/23/21 05:27 12/23/21 05:27 Labs: Abnormal Lab Results 12/23/21 12/23/21 12/22/21 05:27 05:27 14:48 WBC Hgb 10.5 L Hct 33.8 L MCHC [place] # (Auto) Absolute Neutrophils VBG Lactic Acid Sodium Chloride 109 H 113 H BUN 26 H Calcium 8.4 L 8.3 L Phosphorus 2.4 L AST ALT Total Protein 5.5 L Albumin 2.5 L Globulin Albumin/Globulin Ratio 0.8 L Urine Appearance Urine Protein Urine Urobilinogen Ur Leukocyte Esterase Urine RBC Urine WBC Urine Mucus 12/22/21 12/22/21 12/21/21 05:20 05:20 15:51 WBC Hgb 11.0 L Hct MCHC 29.9 L [place] # (Auto) Absolute Neutrophils VBG Lactic Acid Sodium 149 H 157 H Chloride 117 H BUN Calcium Phosphorus 1.8 L AST ALT Total Protein Albumin 2.7 L Globulin Albumin/Globulin Ratio 0.8 L Urine Appearance Urine Protein Urine Urobilinogen Ur Leukocyte Esterase Urine RBC Urine WBC Urine Mucus 12/21/21 12/21/21 12/20/21 05:04 05:04 14:52 WBC Hgb Hct MCHC 30.0 L [place] # (Auto) Absolute Neutrophils VBG Lactic Acid Sodium 154 H Chloride 121 H BUN 26 H Calcium Phosphorus AST 33 H ALT 43 H Total Protein Albumin 2.9 L Globulin Albumin/Globulin Ratio 0.8 L Urine Appearance Hazy A Urine Protein 30 A Urine Urobilinogen 4.0 A Ur Leukocyte Esterase 75 A Urine RBC 60 H Urine WBC 18 H Urine Mucus Many A 12/20/21 12/20/21 13:34 13:34 WBC 11.6 H Hgb Hct 46.1 H MCHC 30.2 L [place] # (Auto) 0.91 H Absolute Neutrophils 8.23 H VBG Lactic Acid 2.4 H Sodium 158 H Chloride 120 H BUN 33 H Calcium Phosphorus AST 45 H ALT 60 H Total Protein Albumin Globulin 4.5 H Albumin/Globulin Ratio 0.8 L Urine Appearance Urine Protein Urine Urobilinogen Ur Leukocyte Esterase Urine RBC Urine WBC Urine Mucus Meds: Medications Acetaminophen (Acetaminophen 325 Mg Tablet) 650 mg PO Q6HP PRN; Protocol PRN Reason: Per Pain Protocol/Fever > 101 Last Admin: 12/22/21 08:13 Dose: 650 mg Albuterol/Ipratropium (Ipratropium/Albuterol 3 Ml Ampul.Neb) 3 ml NEB Q4HRT PRN PRN Reason: Wheezing Carvedilol (Carvedilol 12.5 Mg Tablet) 12.5 mg PO BIDCC [facility] Last Admin: 12/23/21 08:59 Dose: 12.5 mg Ceftriaxone Sodium (Ceftriaxone 1 Gm Vial) 1 gm IV Q24H [facility] Last Admin: 12/23/21 09:06 Dose: 1 gm Diphenhydramine HCl (Diphenhydramine 25 Mg Capsule) 25 mg PO Q6HP PRN PRN Reason: Itching Last Admin: 12/21/21 21:56 Dose: 25 mg Docusate Sodium (Docusate Sodium 100 Mg Capsule) 100 mg PO BID [facility] Last Admin: 12/23/21 08:59 Dose: 100 mg Enoxaparin Sodium (Enoxaparin 30 Mg/0.3 Ml Syringe) 30 mg SQ DAILY [facility] Last Admin: 12/23/21 08:59 Dose: 30 mg Lactulose (Lactulose 20 Gm/30 Ml Oral.Sarah) 10 gm PO DAILYP PRN PRN Reason: Constipation Morphine Sulfate (Morphine 2 Mg/Ml Vial) 2 mg IV Q4HP PRN; Protocol PRN Reason: Per Pain Protocol Last Admin: 12/20/21 20:10 Dose: 2 mg Ondansetron HCl (Ondansetron 4 Mg/2 Ml Vial) 4 mg IV Q4HP PRN; Protocol PRN Reason: Nausea And Vomiting Senna (Sennosides 1 Tablet) 2 tab PO HSP PRN PRN Reason: Constipation Sodium Chloride (0.9 % Sodium Chloride 10 Ml Syringe) 10 ml IV Q8 [facility] Last Admin: 12/23/21 05:28 Dose: 10 ml A/P Assessment and plan (1) Acute UTI: Status: Acute (2) Dehydration: Status: Acute (3) Hypernatremia: Status: Acute (4) Delirium: Status: Acute (5) Adult failure to thrive: Status: Acute (6) Clinical sepsis: Status: Acute Narrative A/P Narrative: Assessment and Plans: 1. UTI with clinical sepsis: Inpatient med surg Saline lock Serial lactic acid Procalcitonin Blood culture, no growth to date Urine culture, no growth to date cbc w/ auto diff in the morning to trend WBC Rocephin Physical therapy Occupational therapy 2. Acute delirium: DDx: dementia, undiagnosed/underdiagnosed Treat reversible causes such as infection, see #1 Frequent reorientation during the day Screening for serum ammonia level-->32, within normal limits CT head w/o--> unable to perform 3. Adult failure to thrive: Adult protective service notified Dietitian referral Speech therapy 4. Hypernatremia with dehydration: Improving, will saline lock Daily CMP to trend serum sodium level GI ppx: not currently indicated DVT ppx: Lovenox Code status: Full Prognosis: Stable Disposition: inpatient med surg; PT OT SLT Time Spent With Patient Time: Total time spent is greater than 50% in coordination of care (as documented) at patient's floor/unit and/or counseling patient: Total time spent with greater than 50% in coordination of care (as documented) at patient's floor/unit and/or counseling patient:: 25 - 35 minutes
--- NOTE | 2021-12-23 14:11 | Internal Med Progress Note ---
SUBJECTIVE Subjective Patient information: Note initiated : 12/23/21 at 2:06 pm Service Date, if different from initiated Date: [] Patient: Emerita Giron a 81 y/o F admitted on 12/20/21 for failure to thrive, confusion. Chief Complaint: [] Interval history: Ms. Giron is a 81 year old F no past medical history, presenting with weakness and confusions. The following history is severely limited by patient's clinical situations and lack of caregiver or family at the bedside. It was reported that patient's Drop of in the ED due to weakness and confusions. Patient is unable to give any further history. Tight patient is only making incomprehensible words upon questioning. It is unclear what is the patient's baseline mentations. Vital signs significant for tachycardia and tachypnea heart rate and rate of breathing in the 1 teens and mid 20s, respectively. Labs significant for leukocytosis with WBC 11.6. Serum sodium level 158. Serum chloride 120. Lactic acid 2.4. Urinalysis suggest the presence of urinary tract infections. Chest x-ray unremarkable. 12/21: Serum sodium level 154 this morning, down from 158 at the time of admissions. Serum ammonia level 32. Blood and urine cultures no growth to date. Patient is lethargic and nonverbal this afternoon. Pending physical therapy Occupational Therapy evaluation and treatment for placement pending. Continue 1/2NS@50cc/hr. Repeat serum sodium this afternoon @3pm. Adult protective service investigation pending. 12/22: Serum sodium level 149 this morning, down from 154 at the time of admissions. Serum phosphorous level 1.8. Blood and urine cultures no growth to date. P ending physical therapy Occupational Therapy evaluation and treatment for placement pending. Continue 1/2NS@50cc/hr. Repeat serum sodium this afternoon @3pm. Adult protective service investigation pending. 12/23: Serum sodium level 141 this morning. Serum phosphorous level 2.4. Blood and urine cultures no growth to date. Pending physical therapy Occupational Therapy evaluation and treatment for placement pending. Saline lock. Continue Rocephin for UTI. Transfer to med surg. 12/24 Constitutional Vitals: Vital Signs Temp Pulse Resp BP Pulse Ox O2 Del Method O2 Flow Rate 97.3 F 80 18 107/69 93 0 12/23/21 08:00 12/22/21 00:01 12/23/21 09:02 12/23/21 09:02 12/23/21 09:02 12/23/21 01:39 12/21/21 00:02 Period Temp Pulse Resp BP Sys/Beard Pulse Ox O2 Del Method O2 Flow Rate Last 24 Hr 97 F-97.7 F 15-20 83-115/53-82 93-100 Room Air-Room Air Intake and Output 12/23/21 12/23/21 12/23/21 05:59 13:59 21:59 Intake Total 550 240 Output Total 1 Balance 549 240 Intake & Output: Intake & Output 12/23/21 12/23/21 12/23/21 05:59 13:59 21:59 Intake Total 550 240 Output Total 1 Balance 549 240 Intake: Oral 550 240 Output: # of times incontinent of urine 1 Other: Meal Breakfast Percent of Meal Consumed 10 Feeding Ability Total Assistance Urine Color Dark Yellow # Voids 1 Exam: General: Alert, Awake, No acute Distress, disheveled and thin Eyes/N/T: EOMI, PERRL, MM Head/Neck: neck supple, normocephalic atraumatic CV: RRR, No murmurs, normal s1/s2 Pulm: Clear b/l, no wheezing/rhonchi/rales Abd: soft, nontender, +BS x4 Ext: no clubbing/cyanosis/edema Neuro: Alert, no focal deficits, moves all extremities, Skin: warm/dry OBJ DATA Labs CBC & Chem 7: 12/23/21 05:27 12/24/21 06:29 Labs: Abnormal Lab Results 12/23/21 12/23/21 12/22/21 05:27 05:27 14:48 WBC Hgb 10.5 L Hct 33.8 L MCHC [place] # (Auto) Absolute Neutrophils VBG Lactic Acid Sodium Chloride 109 H 113 H BUN 26 H Calcium 8.4 L 8.3 L Phosphorus 2.4 L AST ALT Total Protein 5.5 L Albumin 2.5 L Globulin Albumin/Globulin Ratio 0.8 L Urine Appearance Urine Protein Urine Urobilinogen Ur Leukocyte Esterase Urine RBC Urine WBC Urine Mucus 12/22/21 12/22/21 12/21/21 05:20 05:20 15:51 WBC Hgb 11.0 L Hct MCHC 29.9 L [place] # (Auto) Absolute Neutrophils VBG Lactic Acid Sodium 149 H 157 H Chloride 117 H BUN Calcium Phosphorus 1.8 L AST ALT Total Protein Albumin 2.7 L Globulin Albumin/Globulin Ratio 0.8 L Urine Appearance Urine Protein Urine Urobilinogen Ur Leukocyte Esterase Urine RBC Urine WBC Urine Mucus 12/21/21 12/21/21 12/20/21 05:04 05:04 14:52 WBC Hgb Hct MCHC 30.0 L [place] # (Auto) Absolute Neutrophils VBG Lactic Acid Sodium 154 H Chloride 121 H BUN 26 H Calcium Phosphorus AST 33 H ALT 43 H Total Protein Albumin 2.9 L Globulin Albumin/Globulin Ratio 0.8 L Urine Appearance Hazy A Urine Protein 30 A Urine Urobilinogen 4.0 A Ur Leukocyte Esterase 75 A Urine RBC 60 H Urine WBC 18 H Urine Mucus Many A 12/20/21 12/20/21 13:34 13:34 WBC 11.6 H Hgb Hct 46.1 H MCHC 30.2 L [place] # (Auto) 0.91 H Absolute Neutrophils 8.23 H VBG Lactic Acid 2.4 H Sodium 158 H Chloride 120 H BUN 33 H Calcium Phosphorus AST 45 H ALT 60 H Total Protein Albumin Globulin 4.5 H Albumin/Globulin Ratio 0.8 L Urine Appearance Urine Protein Urine Urobilinogen Ur Leukocyte Esterase Urine RBC Urine WBC Urine Mucus Meds: Medications Acetaminophen (Acetaminophen 325 Mg Tablet) 650 mg PO Q6HP PRN; Protocol PRN Reason: Per Pain Protocol/Fever > 101 Last Admin: 12/22/21 08:13 Dose: 650 mg Albuterol/Ipratropium (Ipratropium/Albuterol 3 Ml Ampul.Neb) 3 ml NEB Q4HRT PRN PRN Reason: Wheezing Carvedilol (Carvedilol 12.5 Mg Tablet) 12.5 mg PO BIDCC [facility] Last Admin: 12/23/21 08:59 Dose: 12.5 mg Ceftriaxone Sodium (Ceftriaxone 1 Gm Vial) 1 gm IV Q24H [facility] Last Admin: 12/23/21 09:06 Dose: 1 gm Diphenhydramine HCl (Diphenhydramine 25 Mg Capsule) 25 mg PO Q6HP PRN PRN Reason: Itching Last Admin: 12/21/21 21:56 Dose: 25 mg Docusate Sodium (Docusate Sodium 100 Mg Capsule) 100 mg PO BID [facility] Last Admin: 12/23/21 08:59 Dose: 100 mg Enoxaparin Sodium (Enoxaparin 30 Mg/0.3 Ml Syringe) 30 mg SQ DAILY [facility] Last Admin: 12/23/21 08:59 Dose: 30 mg Lactulose (Lactulose 20 Gm/30 Ml Oral.Sarah) 10 gm PO DAILYP PRN PRN Reason: Constipation Morphine Sulfate (Morphine 2 Mg/Ml Vial) 2 mg IV Q4HP PRN; Protocol PRN Reason: Per Pain Protocol Last Admin: 12/20/21 20:10 Dose: 2 mg Ondansetron HCl (Ondansetron 4 Mg/2 Ml Vial) 4 mg IV Q4HP PRN; Protocol PRN Reason: Nausea And Vomiting Senna (Sennosides 1 Tablet) 2 tab PO HSP PRN PRN Reason: Constipation Sodium Chloride (0.9 % Sodium Chloride 10 Ml Syringe) 10 ml IV Q8 [facility] Last Admin: 12/23/21 05:28 Dose: 10 ml A/P Narrative A/P Narrative: A: *UTI: *Sepsis: 2/2 above *Acute delirium: DDx: dementia, undiagnosed/underdiagnosed -CT head w/o--> unable to perform *Adult failure to thrive/severe protein calorie malnutrition: Fat and muscle mass loss *Hypernatremia with dehydration: *Hypophosphatemia: P: -Blood culture, no growth to date; Urine culture, no growth to date -Rocephin -f/u sodium -Replete electrolytes -Physical therapy , Occupational therapy -Adult protective service notified -Dietitian referral -Speech therapy -CM for placement needs -ppx: Lovenox Code status: Fitness Professional Spent With Patient Time: Total time spent is greater than 50% in coordination of care (as documented) at patient's floor/unit and/or counseling patient:
[2021-12-24] MEDS: 0.9 % SODIUM CHLORIDE 10 ML SYRINGE IV SCH ×3 (06:43→21:16)
[2021-12-24 07:47] LABS: ALT/SGPT 23 U/L (<40); AST/SGOT 16 U/L (<32); Albumin 2.8 gm/dL (3.2-5.2); Alkaline Phosphatase 63 U/L (39-117); Bilirubin,Direct < 0.2 mg/dL (0-0.3); Bilirubin,Total 0.3 mg/dL (0.1-1.0); Blood Urea Nitrogen 19 mg/dL (8-23); Calcium 8.6 mg/dL (8.6-10.4); Carbon Dioxide 27 mmol/L (22-30); Chloride 107 mmol/L (96-108); Globulin 2.8 gm/dL (2.2-3.7); Glomerular Filtration Rate 80; Glucose 84 mg/dL (70-105); Lactate Dehydrogenase 198 U/L (135-225); Phosphorous 2.2 mg/dL (2.5-4.5); Triglycerides 140 mg/dL (<150); Uric Acid 3.9 mg/dL (2.5-8.0)
--- NOTE | 2021-12-24 07:55 | Internal Med Progress Note ---
SUBJECTIVE Subjective Patient information: Note initiated : 12/24/21 at 7:50 am Service Date, if different from initiated Date: [] Patient: Emerita Giron a 81 y/o F admitted on 12/20/21 for failure to thrive, confusion. Chief Complaint: [] Interval history: Ms. Giron is a 81 year old F no past medical history, presenting with weakness and confusions. The following history is severely limited by patient's clinical situations and lack of caregiver or family at the bedside. It was reported that patient's Drop of in the ED due to weakness and confusions. Patient is unable to give any further history. Tight patient is only making incomprehensible words upon questioning. It is unclear what is the patient's baseline mentations. Vital signs significant for tachycardia and tachypnea heart rate and rate of breathing in the 1 teens and mid 20s, respectively. Labs significant for leukocytosis with WBC 11.6. Serum sodium level 158. Serum chloride 120. Lactic acid 2.4. Urinalysis suggest the presence of urinary tract infections. Chest x-ray unremarkable. 12/21: Serum sodium level 154 this morning, down from 158 at the time of admissions. Serum ammonia level 32. Blood and urine cultures no growth to date. Patient is lethargic and nonverbal this afternoon. Pending physical therapy Occupational Therapy evaluation and treatment for placement pending. Continue 1/2NS@50cc/hr. Repeat serum sodium this afternoon @3pm. Adult protective service investigation pending. 12/22: Serum sodium level 149 this morning, down from 154 at the time of admissions. Serum phosphorous level 1.8. Blood and urine cultures no growth to date. P ending physical therapy Occupational Therapy evaluation and treatment for placement pending. Continue 1/2NS@50cc/hr. Repeat serum sodium this afternoon @3pm. Adult protective service investigation pending. 12/23: Serum sodium level 141 this morning. Serum phosphorous level 2.4. Blood and urine cultures no growth to date. Pending physical therapy Occupational Therapy evaluation and treatment for placement pending. Saline lock. Continue Rocephin for UTI. Transfer to med surg. 12/24 No overnight event or new complaints. Likely has dementia. Sodium within normal limits today. Phosphorus low. Review of Systems: denies headache/fever/chills/nausea/vomiting/chest or abdominal pain/cough/dy spnea/diarrhea. Otherwise see above. Constitutional Vitals: Vital Signs Temp Pulse Resp BP Pulse Ox O2 Del Method O2 Flow Rate 98.2 F 81 16 98/47 95 0 12/24/21 03:00 12/24/21 03:00 12/24/21 03:00 12/24/21 03:00 12/24/21 03:00 12/24/21 03:00 12/21/21 00:02 Period Temp Pulse Resp BP Sys/Beard Pulse Ox O2 Del Method O2 Flow Rate Last 24 Hr 97.3 F-100.6 F 81-89 16- 83-107/47-69 90-98 Room Air-Room Air Intake and Output 12/23/21 12/24/21 12/24/21 21:59 05:59 13:59 Intake Total 380 Output Total 1 3 Balance 379 -3 Weight 35.38 kg Intake & Output: Intake & Output 12/23/21 12/24/21 12/24/21 21:59 05:59 13:59 Intake Total 380 Output Total 1 3 Balance 379 -3 Weight 35.38 kg Intake: Nourishment/Supplement quantity 260 (ml) Oral 120 Output: # of times incontinent of urine 1 3 Other: Meal Dinner Percent of Meal Consumed 75% Feeding Ability Total Assistance Nourishment/Supplement name Ensure Exam: General: Alert, Awake, No acute Distress, thin Eyes/N/T: EOMI, Head/Neck: neck supple, CV: RRR, No murmurs, Pulm: Clear b/l, no wheezing/rhonchi/rales Abd: soft, nontender, +BS x4 Ext: no clubbing/cyanosis/edema Neuro: Alert, no focal deficits, moves all extremities, dementia Skin: warm/dry OBJ DATA Labs CBC & Chem 7: 12/23/21 05:27 12/24/21 06:29 Labs: Abnormal Lab Results 12/24/21 12/23/21 12/23/21 06:29 05:27 05:27 Hgb 10.5 L Hct 33.8 L MCHC Sodium Chloride 109 H Anion Gap 7.0 L BUN Calcium 8.4 L Phosphorus 2.2 L 2.4 L AST ALT Total Protein 5.6 L 5.5 L Albumin 2.8 L 2.5 L Albumin/Globulin Ratio 0.8 L 12/22/21 12/22/21 12/22/21 14:48 05:20 05:20 Hgb 11.0 L Hct MCHC 29.9 L Sodium 149 H Chloride 113 H 117 H Anion Gap BUN 26 H Calcium 8.3 L Phosphorus 1.8 L AST ALT Total Protein Albumin 2.7 L Albumin/Globulin Ratio 0.8 L 12/21/21 12/21/21 12/21/21 15:51 05:04 05:04 Hgb Hct MCHC 30.0 L Sodium 157 H 154 H Chloride 121 H Anion Gap BUN 26 H Calcium Phosphorus AST 33 H ALT 43 H Total Protein Albumin 2.9 L Albumin/Globulin Ratio 0.8 L Meds: Medications Acetaminophen (Acetaminophen 325 Mg Tablet) 650 mg PO Q6HP PRN; Protocol PRN Reason: Per Pain Protocol/Fever > 101 Last Admin: 12/22/21 08:13 Dose: 650 mg Albuterol/Ipratropium (Ipratropium/Albuterol 3 Ml Ampul.Neb) 3 ml NEB Q4HRT PRN PRN Reason: Wheezing Carvedilol ([facility] 12.5 Mg Table[facility]) [facility] Last Admin: 12/23/21 18:02 Dose: Not Given Ceftriaxone Sodium (Ceftriaxone 1 Gm Vial) 1 gm IV Q24H [facility] Last Admin: 12/23/21 09:06 Dose: 1 gm Diphenhydramine HCl (Diphenhydramine 25 Mg Capsule) 25 mg PO Q6HP PRN PRN Reason: Itching Last Admin: 12/21/21 21:56 Dose: 25 mg Docusate Sodium (Docusate Sodium 100 Mg Capsule) 100 mg PO BID [facility] Last Admin: 12/23/21 20:05 Dose: 100 mg Enoxaparin Sodium (Enoxaparin 30 Mg/0.3 Ml Syringe) 30 mg SQ DAILY [facility] Last Admin: 12/23/21 08:59 Dose: 30 mg Lactulose (Lactulose 20 Gm/30 Ml Oral.Sarah) 10 gm PO DAILYP PRN PRN Reason: Constipation Morphine Sulfate (Morphine 2 Mg/Ml Vial) 2 mg IV Q4HP PRN; Protocol PRN Reason: Per Pain Protocol Last Admin: 12/20/21 20:10 Dose: 2 mg Ondansetron HCl (Ondansetron 4 Mg/2 Ml Vial) 4 mg IV Q4HP PRN; Protocol PRN Reason: Nausea And Vomiting Senna (Sennosides 1 Tablet) 2 tab PO HSP PRN PRN Reason: Constipation Sodium Chloride (0.9 % Sodium Chloride 10 Ml Syringe) 10 ml IV Q8 [facility] Last Admin: 12/24/21 06:43 Dose: 10 ml A/P Narrative A/P Narrative: A: *UTI: *Sepsis: 2/2 above -Tmax o/n 100.6 *Acute delirium likely from Dementia undiagnosed/underdiagnosed *Dementia likely: -CT brain with mod atrophy *Adult failure to thrive/severe protein calorie malnutrition: Fat and muscle mass loss *Hypernatremia with dehydration: resolved *Hypophosphatemia: *HTN: on BB/ACEI P: -Blood culture, no growth to date; Urine culture, no growth to date -Rocephin -f/u sodium, Replete electrolytes -hold coreg for low BP, ACEI already held -Adult protective service notified -Dietitian referral -Speech therapy -pt/ot -CM for placement needs -ppx: Lovenox Time Spent With Patient Time: Total time spent is greater than 50% in coordination of care (as documented) at patient's floor/unit and/or counseling patient: Total time spent with greater than 50% in coordination of care (as documented) at patient's floor/unit and/or counseling patient:: 25 - 35 minutes
[2021-12-24] MEDS: NEUTRA PHOS 1 PACKET PO SCH ×2 (10:06→21:16)
[2021-12-24] MEDS: ALLOPURINOL 100 MG TABLET PO SCH ×2 (10:06→21:16)
[2021-12-24] MEDS: ENOXAPARIN 30 MG/0.3 ML SYRINGE SQ SCH (10:06)
[2021-12-24] MEDS: DOCUSATE SODIUM 100 MG CAPSULE PO SCH ×2 (10:06→21:16)
[2021-12-24] MEDS: cefTRIAXone 1 GM VIAL IV SCH (13:29)
[2021-12-24] MEDS: ACETAMINOPHEN 325 MG TABLET PO PRN (23:25)
[2021-12-25] MEDS: 0.9 % SODIUM CHLORIDE 10 ML SYRINGE IV SCH ×3 (05:40→20:36)
--- NOTE | 2021-12-25 07:41 | Internal Med Progress Note ---
SUBJECTIVE Subjective Patient information: Note initiated : 12/25/21 at 7:39 am Service Date, if different from initiated Date: [] Patient: Emerita Giron a 81 y/o F admitted on 12/20/21 for failure to thrive, confusion. Chief Complaint: [] Interval history: Ms. Giron is a 81 year old F no past medical history, presenting with weakness and confusions. The following history is severely limited by patient's clinical situations and lack of caregiver or family at the bedside. It was reported that patient's Drop of in the ED due to weakness and confusions. Patient is unable to give any further history. Tight patient is only making incomprehensible words upon questioning. It is unclear what is the patient's baseline mentations. Vital signs significant for tachycardia and tachypnea heart rate and rate of breathing in the 1 teens and mid 20s, respectively. Labs significant for leukocytosis with WBC 11.6. Serum sodium level 158. Serum chloride 120. Lactic acid 2.4. Urinalysis suggest the presence of urinary tract infections. Chest x-ray unremarkable. 12/21: Serum sodium level 154 this morning, down from 158 at the time of admissions. Serum ammonia level 32. Blood and urine cultures no growth to date. Patient is lethargic and nonverbal this afternoon. Pending physical therapy Occupational Therapy evaluation and treatment for placement pending. Continue 1/2NS@50cc/hr. Repeat serum sodium this afternoon @3pm. Adult protective service investigation pending. 12/22: Serum sodium level 149 this morning, down from 154 at the time of admissions. Serum phosphorous level 1.8. Blood and urine cultures no growth to date. P ending physical therapy Occupational Therapy evaluation and treatment for placement pending. Continue 1/2NS@50cc/hr. Repeat serum sodium this afternoon @3pm. Adult protective service investigation pending. 12/23: Serum sodium level 141 this morning. Serum phosphorous level 2.4. Blood and urine cultures no growth to date. Pending physical therapy Occupational Therapy evaluation and treatment for placement pending. Saline lock. Continue Rocephin for UTI. Transfer to med surg. 12/24 No overnight event or new complaints. Likely has dementia. Sodium within normal limits today. Phosphorus low. 12/25 No overnight event or new complaints. Review of Systems: denies headache/fever/chills/nausea/vomiting/chest or abdominal pain/cough/dyspnea/diarrhea. Otherwise see above. Constitutional Vitals: Vital Signs Temp Pulse Resp BP Pulse Ox O2 Del Method O2 Flow Rate 97.5 F 86 16 115/60 95 0 12/25/21 07:00 12/25/21 07:00 12/25/21 07:00 12/25/21 07:00 12/25/21 07:00 12/25/21 07:00 12/21/21 00:02 Period Temp Pulse Resp BP Sys/Beard Pulse Ox O2 Del Method O2 Flow Rate Last 24 Hr 97.3 F-99.8 F 81-87 16-20 94-121/47-69 94-98 Room Air-Room Air Intake and Output 12/24/21 12/25/21 12/25/21 21:59 05:59 13:59 Intake Total 720 Output Total 3 1 1 Balance 717 -1 -1 Weight 37.331 kg Intake & Output: Intake & Output 12/24/21 12/25/21 12/25/21 21:59 05:59 13:59 Intake Total 720 Output Total 3 1 1 Balance 717 -1 -1 Weight 37.331 kg Intake: Nourishment/Supplement quantity 240 (ml) Oral 480 Output: # of times incontinent of urine 3 1 1 Other: Meal Dinner Percent of Meal Consumed 100% Feeding Ability Total Assistance Exam: General: Alert, Awake, No acute Distress, thin Eyes/N/T: EOMI, Head/Neck: neck supple, CV: RRR, No murmurs, Pulm: Clear b/l, no wheezing/rhonchi/rales Abd: soft, nontender, +BS x4 Ext: no clubbing/cyanosis/edema Neuro: Alert, no focal deficits, moves all extremities, dementia Skin: warm/dry OBJ DATA Labs CBC & Chem 7: 12/23/21 05:27 12/24/21 06:29 Labs: Abnormal Lab Results 12/24/21 12/23/21 12/23/21 06:29 05:27 05:27 Hgb 10.5 L Hct 33.8 L Chloride 109 H Anion Gap 7.0 L BUN Calcium 8.4 L Phosphorus 2.2 L 2.4 L Total Protein 5.6 L 5.5 L Albumin 2.8 L 2.5 L Albumin/Globulin Ratio 0.8 L 12/22/21 14:48 Hgb Hct Chloride 113 H Anion Gap BUN 26 H Calcium 8.3 L Phosphorus Total Protein Albumin Albumin/Globulin Ratio Meds: Medications Acetaminophen (Acetaminophen 325 Mg Tablet) 650 mg PO Q6HP PRN; Protocol PRN Reason: Per Pain Protocol/Fever > 101 Last Admin: 12/24/21 23:25 Dose: 650 mg Albuterol/Ipratropium (Ipratropium/Albuterol 3 Ml Ampul.Neb) 3 ml NEB Q4HRT PRN PRN Reason: Wheezing Allopurinol (Allopurinol 100 Mg Tablet) 100 mg PO BID [facility] Last Admin: 12/24/21 21:16 Dose: 100 mg Diphenhydramine HCl (Diphenhydramine 25 Mg Capsule) 25 mg PO Q6HP PRN PRN Reason: Itching Last Admin: 12/21/21 21:56 Dose: 25 mg Docusate Sodium (Docusate Sodium 100 Mg Capsule) 100 mg PO BID [facility] Last Admin: 12/24/21 21:16 Dose: 100 mg Enoxaparin Sodium (Enoxaparin 30 Mg/0.3 Ml Syringe) 30 mg SQ DAILY [facility] Last Admin: 12/24/21 10:06 Dose: 30 mg Lactulose (Lactulose 20 Gm/30 Ml Oral.Sarah) 10 gm PO DAILYP PRN PRN Reason: Constipation Morphine Sulfate (Morphine 2 Mg/Ml Vial) 2 mg IV Q4HP PRN; Protocol PRN Reason: Per Pain Protocol Last Admin: 12/20/21 20:10 Dose: 2 mg Ondansetron HCl (Ondansetron 4 Mg/2 Ml Vial) 4 mg IV Q4HP PRN; Protocol PRN Reason: Nausea And Vomiting Senna (Sennosides 1 Tablet) 2 tab PO HSP PRN PRN Reason: Constipation Sodium Chloride (0.9 % Sodium Chloride 10 Ml Syringe) 10 ml IV Q8 [facility] Last Admin: 12/25/21 05:40 Dose: Not Given A/P Narrative A/P Narrative: A: *UTI: no growth *Sepsis: 2/2 above -afebrile o/n *Acute delirium likely from Dementia undiagnosed/underdiagnosed *Dementia likely: -CT brain with mod atrophy *Adult failure to thrive/severe protein calorie malnutrition: Fat and muscle mass loss *Hypernatremia with dehydration: resolved *Hypophosphatemia: *HTN: on BB/ACEI -hypotensive, better after stopping meds P: -Blood culture, no growth to date; Urine culture, no growth to date -Rocephin d/c'd -f/u sodium, Replete electrolytes -cont hold coreg for low BP, ACEI already held -Adult protective service notified -Dietitian referral -Speech therapy -pt/ot -CM for placement needs -ppx: Lovenox Time Spent With Patient Time: Total time spent is greater than 50% in coordination of care (as documented) at patient's floor/unit and/or counseling patient:
[2021-12-25] MEDS: ALLOPURINOL 100 MG TABLET PO SCH ×2 (08:11→20:36)
[2021-12-25] MEDS: ENOXAPARIN 30 MG/0.3 ML SYRINGE SQ SCH (08:11)
[2021-12-25] MEDS: DOCUSATE SODIUM 100 MG CAPSULE PO SCH ×2 (08:11→20:36)
--- NOTE | 2021-12-25 12:50 | Discharge Summary ---
Discharge Provider Provider IMPORTANT FOLLOW-UP INFORMATION FOR PCP: pt to monitor blood pressure twice daily and bring log to PCP. Stopped blood pressure medications for hypertension. Patient information: Note initiated : 12/25/21 at 12:48 pm Service Date, if different from initiated Date: [] Patient: Emerita Giron a 81 y/o F admitted on 12/20/21 for failure to thrive, confusion. Chief Complaint: [] Date of admission: 12/20/21 19:09 Primary care physician: Weston Dempsey Consults: 12/20/21 Consult to Physician [CONS] Stat Comment: Consulting Provider: Jerson Peraza Reason For Exam: Physician to Consult COURSE Hospital Course Hospital course: Chief Complaint: [] Interval history: Ms. Giron is a 81 year old F no past medical history, presenting with weakness and confusions. The following history is severely limited by patient's clinical situations and lack of caregiver or family at the bedside. It was reported that patient's Drop of in the ED due to weakness and confusions. Patient is unable to give any further history. Tight patient is only making incomprehensible words upon questioning. It is unclear what is the patient's baseline mentations. Vital signs significant for tachycardia and tachypnea heart rate and rate of breathing in the 1 teens and mid 20s, respectively. Labs significant for leukocytosis with WBC 11.6. Serum sodium level 158. Serum chloride 120. Lactic acid 2.4. Urinalysis suggest the presence of urinary tract infections. Chest x-ray unremarkable. 12/21: Serum sodium level 154 this morning, down from 158 at the time of admissions. Serum ammonia level 32. Blood and urine cultures no growth to date. Patient is lethargic and nonverbal this afternoon. Pending physical therapy Occupational Therapy evaluation and treatment for placement pending. Continue 1/2NS@50cc/hr. Repeat serum sodium this afternoon @3pm. Adult protective service investigation pending. 12/22: Serum sodium level 149 this morning, down from 154 at the time of admissions. Serum phosphorous level 1.8. Blood and urine cultures no growth to date. Pending physical therapy Occupational Therapy evaluation and treatment for placement pending. Continue 1/2NS@50cc/hr. Repeat serum sodium this afternoon @3pm. Adult protective service investigation pending. 12/23: Serum sodium level 141 this morning. Serum phosphorous level 2.4. Blood and urine cultures no growth to date. Pending physical therapy Occupational Therapy evaluation and treatment for placement pending. Saline lock. Continue Rocephin for UTI. Transfer to med surg. 12/24 No overnight event or new complaints. Likely has dementia. Sodium within normal limits today. Phosphorus low. 12/25 No overnight event or new complaints. A: *UTI: no growth *Sepsis: 2/ above -afebrile o/n *Acute delirium likely from Dementia undiagnosed/underdiagnosed *Dementia likely: -CT brain with mod atrophy *Adult failure to thrive/severe protein calorie malnutrition: Fat and muscle mass loss *Hypernatremia with dehydration: resolved *Hypophosphatemia: *HTN: on BB/ACEI -hypotensive, better after stopping meds P: -cont hold coreg for low BP, ACEI already held Discharge diagnosis: Delirium dementia questionable UTI sepsis to thrive Secondary discharge diagnosis: Severe protein calorie malnutrition hypernatremia with dehydration hypophosphatemia hypertension Time Spent with Patient Time attestation: Total time spent providing and/or coordinating discharge services: Time spent: Greater than 30 minutes EXAM Constitutional Vitals: Temp Pulse Resp BP Pulse Ox O2 Del Method O2 Flow Rate 97.4 F 81 18 126/63 96 0 12/25/21 11:00 12/25/21 11:00 12/25/21 11:00 12/25/21 11:00 12/25/21 11:00 12/25/21 11:00 12/21/21 00:02 Discharge Data Data Completed and Pending Labs on day of discharge: Preliminary micro results at discharge 12/20/21 19:34 Blood Culture - Preliminary Blood 12/20/21 19:31 Blood Culture - Preliminary Blood Discharge Plan Patient/Caregiver Discharge Instructions Activity: increase activity as tolerated Diet: Regular Diet Activity Restrictions/Additional Instructions: Monitor blood pressure twice daily and bring log to PCP. Stopped blood pressure medications for hypertension. Prescriptions: Continued allopurinol 100 mg tablet 100 mg PO BID Discontinued carvedilol 12.5 mg Tablet 12.5 mg PO BID Rx Instructions: must administer with a meal/food lisinopril 10 mg Tablet 10 mg PO QDAY Follow Up Plan Follow up with: Weston Dempsey DO [Primary Care Provider] - Patient Disposition: [facility] Prognosis: Fair Rehab Potential: Fair I certify that the patient requires SNF services: Yes Overall status at discharge: patient is progressing back to baseline
[2021-12-26] MEDS: 0.9 % SODIUM CHLORIDE 10 ML SYRINGE IV SCH ×3 (05:38→23:28)
[2021-12-26] MEDS: ENOXAPARIN 30 MG/0.3 ML SYRINGE SQ SCH (09:26)
[2021-12-26] MEDS: DOCUSATE SODIUM 100 MG CAPSULE PO SCH ×2 (09:27→23:27)
[2021-12-26] MEDS: ALLOPURINOL 100 MG TABLET PO SCH ×2 (09:27→23:28)
--- NOTE | 2021-12-26 10:41 | Internal Med Progress Note ---
SUBJECTIVE Subjective Patient information: Note initiated : 12/26/21 at 10:39 am Service Date, if different from initiated Date: [] Patient: Emerita Giron a 81 y/o F admitted on 12/20/21 for failure to thrive, confusion. Chief Complaint: [] Interval history: Ms. Giron is a 81 year old F no past medical history, presenting with weakness and confusions. The following history is severely limited by patient's clinical situations and lack of caregiver or family at the bedside. It was reported that patient's Drop of in the ED due to weakness and confusions. Patient is unable to give any further history. Tight patient is only making incomprehensible words upon questioning. It is unclear what is the patient's baseline mentations. Vital signs significant for tachycardia and tachypnea heart rate and rate of breathing in the 1 teens and mid 20s, respectively. Labs significant for leukocytosis with WBC 11.6. Serum sodium level 158. Serum chloride 120. Lactic acid 2.4. Urinalysis suggest the presence of urinary tract infections. Chest x-ray unremarkable. 12/21: Serum sodium level 154 this morning, down from 158 at the time of admissions. Serum ammonia level 32. Blood and urine cultures no growth to date. Patient is lethargic and nonverbal this afternoon. Pending physical therapy Occupational Therapy evaluation and treatment for placement pending. Continue 1/2NS@50cc/hr. Repeat serum sodium this afternoon @3pm. Adult protective service investigation pending. 12/22: Serum sodium level 149 this morning, down from 154 at the time of admissions. Serum phosphorous level 1.8. Blood and urine cultures no growth to date. Pending physical therapy Occupational Therapy evaluation and treatment for placement pending. Continue 1/2NS@50cc/hr. Repeat serum sodium this afternoon @3pm. Adult protective service investigation pending. 12/23: Serum sodium level 141 this morning. Serum phosphorous level 2.4. Blood and urine cultures no growth to date. Pending physical therapy Occupational Therapy evaluation and treatment for placement pending. Saline lock. Continue Rocephin for UTI. Transfer to med surg. 12/24 No overnight event or new complaints. Likely has dementia. Sodium within normal limits today. Phosphorus low. 12/25 No overnight event or new complaints. 12/26 No overnight event or new complaints. Awaiting placement. Confusion at baseline. Review of Systems: denies headache/fever/chills/nausea/vomiting/chest or abdominal pain/cough/dyspnea/diarrhea. Otherwise see above. Constitutional Vitals: Vital Signs Temp Pulse Resp BP Pulse Ox O2 Del Method O2 Flow Rate 98.5 F 85 16 111/61 98 0 12/26/21 07:00 12/26/21 07:00 12/26/21 07:00 12/26/21 07:00 12/26/21 07:00 12/26/21 07:00 12/21/21 00:02 Period Temp Pulse Resp BP Sys/Beard Pulse Ox O2 Del Method O2 Flow Rate Last 24 Hr 97.4 F-99.5 F 81-104 16-18 100-126/56-74 94-98 Room Air-Room Air Intake and Output 12/25/21 12/26/21 12/26/21 21:59 05:59 13:59 Intake Total 480 240 Output Total 1 1 Balance 479 -1 240 Weight 36.832 kg Intake & Output: Intake & Output 12/25/21 12/26/21 12/26/21 21:59 05:59 13:59 Intake Total 480 240 Output Total 1 1 Balance 479 -1 240 Weight 36.832 kg Intake: Oral 480 240 Output: # of times incontinent of urine 1 1 Other: Meal Dinner Breakfast Percent of Meal Consumed 100% 25% Feeding Ability Total Assistance Total Assistance Nourishment/Supplement name 240 # Voids 1 Exam: General: Alert, Awake, No acute Distress, thin Eyes/N/T: EOMI, Head/Neck: neck supple, CV: RRR, No murmurs, Pulm: Clear b/l, no wheezing/rhonchi/rales Abd: soft, nontender, +BS x4 Ext: no clubbing/cyanosis/edema Neuro: Alert, no focal deficits, moves all extremities, dementia Skin: warm/dry OBJ DATA Labs CBC & Chem 7: 12/23/21 05:27 12/24/21 06:29 Labs: Abnormal Lab Results 12/24/21 06:29 Anion Gap 7.0 L Phosphorus 2.2 L Total Protein 5.6 L Albumin 2.8 L Meds: Medications Acetaminophen (Acetaminophen 325 Mg Tablet) 650 mg PO Q6HP PRN; Protocol PRN Reason: Per Pain Protocol/Fever > 101 Last Admin: 12/24/21 23:25 Dose: 650 mg Albuterol/Ipratropium (Ipratropium/Albuterol 3 Ml Ampul.Neb) 3 ml NEB Q4HRT PRN PRN Reason: Wheezing Allopurinol (Allopurinol 100 Mg Tablet) 100 mg PO BID [facility] Last Admin: 12/26/21 09:27 Dose: 100 mg Diphenhydramine HCl (Diphenhydramine 25 Mg Capsule) 25 mg PO Q6HP PRN PRN Reason: Itching Last Admin: 12/21/21 21:56 Dose: 25 mg Docusate Sodium (Docusate Sodium 100 Mg Capsule) 100 mg PO BID [facility] Last Admin: 12/26/21 09:27 Dose: 100 mg Enoxaparin Sodium (Enoxaparin 30 Mg/0.3 Ml Syringe) 30 mg SQ DAILY [facility] Last Admin: 12/26/21 09:26 Dose: 30 mg Lactulose (Lactulose 20 Gm/30 Ml Oral.Sarah) 10 gm PO DAILYP PRN PRN Reason: Constipation Morphine Sulfate (Morphine 2 Mg/Ml Vial) 2 mg IV Q4HP PRN; Protocol PRN Reason: Per Pain Protocol Last Admin: 12/20/21 20:10 Dose: 2 mg Ondansetron HCl (Ondansetron 4 Mg/2 Ml Vial) 4 mg IV Q4HP PRN; Protocol PRN Reason: Nausea And Vomiting Senna (Sennosides 1 Tablet) 2 tab PO HSP PRN PRN Reason: Constipation Sodium Chloride (0.9 % Sodium Chloride 10 Ml Syringe) 10 ml IV Q8 [facility] Last Admin: 12/26/21 05:38 Dose: Not Given A/P Narrative A/P Narrative: A: *UTI: no growth *Sepsis: 2/2 above -afebrile o/n -Blood culture, no growth to date; Urine culture, no growth to date *Acute delirium likely from Dementia undiagnosed/underdiagnosed *Dementia likely: -CT brain with mod atrophy *Adult failure to thrive/severe protein calorie malnutrition: Fat and muscle mass loss *Hypernatremia with dehydration: resolved *Hypophosphatemia: *HTN: on BB/ACEI -hypotensive, better after stopping meds P: -abx stopped -cont hold coreg for low BP, ACEI already held -Adult protective service notified -Dietitian referral -pt/ot -CM for placement needs -ppx: Lovenox Time Spent With Patient Time: Total time spent is greater than 50% in coordination of care (as documented) at patient's floor/unit and/or counseling patient:
[2021-12-27] MEDS: 0.9 % SODIUM CHLORIDE 10 ML SYRINGE IV SCH ×3 (04:32→20:18)
--- NOTE | 2021-12-27 07:33 | Internal Med Progress Note ---
SUBJECTIVE Subjective Patient information: Note initiated : 12/27/21 at 7:32 am Service Date, if different from initiated Date: [] Patient: Emerita Giron a 81 y/o F admitted on 12/20/21 for failure to thrive, confusion. Chief Complaint: [] Interval history: Ms. Giron is a 81 year old F no past medical history, presenting with weakness and confusions. The following history is severely limited by patient's clinical situations and lack of caregiver or family at the bedside. It was reported that patient's Drop of in the ED due to weakness and confusions. Patient is unable to give any further history. Tight patient is only making incomprehensible words upon questioning. It is unclear what is the patient's baseline mentations. Vital signs significant for tachycardia and tachypnea heart rate and rate of breathing in the 1 teens and mid 20s, respectively. Labs significant for leukocytosis with WBC 11.6. Serum sodium level 158. Serum chloride 120. Lactic acid 2.4. Urinalysis suggest the presence of urinary tract infections. Chest x-ray unremarkable. 12/21: Serum sodium level 154 this morning, down from 158 at the time of admissions. Serum ammonia level 32. Blood and urine cultures no growth to date. Patient is lethargic and nonverbal this afternoon. Pending physical therapy Occupational Therapy evaluation and treatment for placement pending. Continue 1/2NS@50cc/hr. Repeat serum sodium this afternoon @3pm. Adult protective service investigation pending. 12/22: Serum sodium level 149 this morning, down from 154 at the time of admissions. Serum phosphorous level 1.8. Blood and urine cultures no growth to date. P ending physical therapy Occupational Therapy evaluation and treatment for placement pending. Continue 1/2NS@50cc/hr. Repeat serum sodium this afternoon @3pm. Adult protective service investigation pending. 12/23: Serum sodium level 141 this morning. Serum phosphorous level 2.4. Blood and urine cultures no growth to date. Pending physical therapy Occupational Therapy evaluation and treatment for placement pending. Saline lock. Continue Rocephin for UTI. Transfer to med surg. 12/24 No overnight event or new complaints. Likely has dementia. Sodium within normal limits today. Phosphorus low. 12/25 No overnight event or new complaints. 12/26 No overnight event or new complaints. Awaiting placement. Confusion at baseline. 12/27 No changes. No overnight events. Review of Systems: denies headache/fever/chills/nausea/vomiting/chest or abdominal pain/cough/dyspnea/diarrhea. Otherwise see above. Constitutional Vitals: Vital Signs Temp Pulse Resp BP Pulse Ox O2 Del Method O2 Flow Rate 97.2 F 86 20 123/80 95 0 12/27/21 03:48 12/27/21 03:48 12/27/21 03:48 12/27/21 03:48 12/27/21 03:48 12/27/21 03:48 12/21/21 00:02 Period Temp Pulse Resp BP Sys/Beard Pulse Ox O2 Del Method O2 Flow Rate Last 24 Hr 97.2 F-99.2 F 83-94 16-20 109-123/58-82 94-96 Room Air-Room Air Intake and Output 12/26/21 12/27/21 12/27/21 21:59 05:59 13:59 Intake Total 690 Output Total 2 Balance 690 -2 Weight 44.225 kg Intake & Output: Intake & Output 12/26/21 12/27/21 12/27/21 21:59 05:59 13:59 Intake Total 690 Output Total 2 Balance 690 -2 Weight 44.225 kg Intake: Nourishment/Supplement quantity 440 (ml) Oral 250 Output: # of times incontinent of urine 2 Other: Meal Dinner Nourishment/Supplement Percent of Meal Consumed 50% 100% Feeding Ability Total Assistance Nourishment/Supplement name Ensure yogurt Exam: General: Alert, Awake, No acute Distress, thin Eyes/N/T: EOMI, Head/Neck: neck supple, CV: RRR, No murmurs, Pulm: Clear b/l, no wheezing/rhonchi/rales Abd: soft, nontender, +BS x4 Ext: no clubbing/cyanosis/edema Neuro: Alert, no focal deficits, moves all extremities, dementia Skin: warm/dry OBJ DATA Labs CBC & Chem 7: 12/23/21 05:27 12/24/21 06:29 Labs: Abnormal Lab Results 12/24/21 06:29 Anion Gap 7.0 L Phosphorus 2.2 L Total Protein 5.6 L Albumin 2.8 L Meds: Medications Acetaminophen (Acetaminophen 325 Mg Tablet) 650 mg PO Q6HP PRN; Protocol PRN Reason: Per Pain Protocol/Fever > 101 Last Admin: 12/24/21 23:25 Dose: 650 mg Albuterol/Ipratropium (Ipratropium/Albuterol 3 Ml Ampul.Neb) 3 ml NEB Q4HRT PRN PRN Reason: Wheezing Allopurinol (Allopurinol 100 Mg Tablet) 100 mg PO BID [facility] Last Admin: 12/26/21 23:28 Dose: 100 mg Diphenhydramine HCl (Diphenhydramine 25 Mg Capsule) 25 mg PO Q6HP PRN PRN Reason: Itching Last Admin: 12/21/21 21:56 Dose: 25 mg Docusate Sodium (Docusate Sodium 100 Mg Capsule) 100 mg PO BID [facility] Last Admin: 12/26/21 23:27 Dose: 100 mg Enoxaparin Sodium (Enoxaparin 30 Mg/0.3 Ml Syringe) 30 mg SQ DAILY [facility] Last Admin: 12/26/21 09:26 Dose: 30 mg Lactulose (Lactulose 20 Gm/30 Ml Oral.Sarah) 10 gm PO DAILYP PRN PRN Reason: Constipation Morphine Sulfate (Morphine 2 Mg/Ml Vial) 2 mg IV Q4HP PRN; Protocol PRN Reason: Per Pain Protocol Last Admin: 12/20/21 20:10 Dose: 2 mg Ondansetron HCl (Ondansetron 4 Mg/2 Ml Vial) 4 mg IV Q4HP PRN; Protocol PRN Reason: Nausea And Vomiting Senna (Sennosides 1 Tablet) 2 tab PO HSP PRN PRN Reason: Constipation Sodium Chloride (0.9 % Sodium Chloride 10 Ml Syringe) 10 ml IV Q8 [facility] Last Admin: 12/27/21 04:32 Dose: 10 ml A/P Narrative A/P Narrative: A: *UTI: no growth *Sepsis: 2/2 above -afebrile o/n -Blood culture, no growth to date; Urine culture, no growth to date *Acute delirium likely from Dementia undiagnosed/underdiagnosed: likely at baseline *Dementia likely: -CT brain with mod atrophy *Adult failure to thrive/severe protein calorie malnutrition: Fat and muscle mass loss *Hypernatremia with dehydration: resolved *Hypophosphatemia: *HTN: on BB/ACEI -hypotensive, better after stopping meds P: -abx stopped -cont hold coreg for low BP, ACEI already held -Adult protective service notified -Dietitian referral -pt/ot -CM for placement needs -ppx: Lovenox Time Spent With Patient Time: Total time spent is greater than 50% in coordination of care (as documented) at patient's floor/unit and/or counseling patient:
[2021-12-27] MEDS: ENOXAPARIN 30 MG/0.3 ML SYRINGE SQ SCH (07:56)
[2021-12-27] MEDS: DOCUSATE SODIUM 100 MG CAPSULE PO SCH ×2 (07:56→20:13)
[2021-12-27] MEDS: ALLOPURINOL 100 MG TABLET PO SCH ×2 (07:56→20:13)
[2021-12-27] MEDS: ACETAMINOPHEN 325 MG TABLET PO PRN (20:13)
[2021-12-28] MEDS: 0.9 % SODIUM CHLORIDE 10 ML SYRINGE IV SCH ×3 (06:41→21:52)
--- NOTE | 2021-12-28 07:16 | Internal Med Progress Note ---
SUBJECTIVE Subjective Patient information: Note initiated : 12/28/21 at 7:16 am Service Date, if different from initiated Date: [] Patient: Emerita Giron a 81 y/o F admitted on 12/20/21 for failure to thrive, confusion. Chief Complaint: [] Interval history: Ms. Giron is a 81 year old F no past medical history, presenting with weakness and confusions. The following history is severely limited by patient's clinical situations and lack of caregiver or family at the bedside. It was reported that patient's Drop of in the ED due to weakness and confusions. Patient is unable to give any further history. Tight patient is only making incomprehensible words upon questioning. It is unclear what is the patient's baseline mentations. Vital signs significant for tachycardia and tachypnea heart rate and rate of breathing in the 1 teens and mid 20s, respectively. Labs significant for leukocytosis with WBC 11.6. Serum sodium level 158. Serum chloride 120. Lactic acid 2.4. Urinalysis suggest the presence of urinary tract infections. Chest x-ray unremarkable. 12/21: Serum sodium level 154 this morning, down from 158 at the time of admissions. Serum ammonia level 32. Blood and urine cultures no growth to date. Patient is lethargic and nonverbal this afternoon. Pending physical therapy Occupational Therapy evaluation and treatment for placement pending. Continue 1/2NS@50cc/hr. Repeat serum sodium this afternoon @3pm. Adult protective service investigation pending. 12/22: Serum sodium level 149 this morning, down from 154 at the time of admissions. Serum phosphorous level 1.8. Blood and urine cultures no growth to date. P ending physical therapy Occupational Therapy evaluation and treatment for placement pending. Continue 1/2NS@50cc/hr. Repeat serum sodium this afternoon @3pm. Adult protective service investigation pending. 12/23: Serum sodium level 141 this morning. Serum phosphorous level 2.4. Blood and urine cultures no growth to date. Pending physical therapy Occupational Therapy evaluation and treatment for placement pending. Saline lock. Continue Rocephin for UTI. Transfer to med surg. 12/24 No overnight event or new complaints. Likely has dementia. Sodium within normal limits today. Phosphorus low. 12/25 No overnight event or new complaints. 12/26 No overnight event or new complaints. Awaiting placement. Confusion at baseline. 12/27 No changes. No overnight events. 12/28 Patient pleasant. Resting in bed. Awake. No new complaints. Review of Systems: denies headache/fever/chills/nausea/vomiting/chest or abdominal pain/cough/dyspnea/diarrhea. Otherwise see above. Constitutional Vitals: Vital Signs Temp Pulse Resp BP Pulse Ox O2 Del Method O2 Flow Rate 97.1 F 84 20 106/64 97 0 12/28/21 02:51 12/28/21 02:51 12/28/21 02:51 12/28/21 02:51 12/28/21 02:51 12/28/21 02:51 12/21/21 00:02 Period Temp Pulse Resp BP Sys/Beard Pulse Ox O2 Del Method O2 Flow Rate Last 24 Hr 97.0 F-98.8 F 71-107 20-20 97-129/58-64 94-97 Room Air-Room Air Intake and Output 12/27/21 12/28/21 12/28/21 21:59 05:59 13:59 Intake Total 240 0 Output Total 1 Balance 240 -1 Weight 43.409 kg Intake & Output: Intake & Output 12/27/21 12/28/21 12/28/21 21:59 05:59 13:59 Intake Total 240 0 Output Total 1 Balance 240 -1 Weight 43.409 kg Intake: Oral 240 0 Output: # of times incontinent of urine 1 Other: Meal Dinner Percent of Meal Consumed 75% Exam: General: Alert, Awake, No acute Distress, thin Eyes/N/T: EOMI, Head/Neck: neck supple, CV: RRR, No murmurs, Pulm: Clear b/l, no wheezing/rhonchi/rales Abd: soft, nontender, +BS x4 Ext: no clubbing/cyanosis/edema Neuro: Alert, no focal deficits, moves all extremities, dementia Skin: warm/dry OBJ DATA Labs CBC & Chem 7: 12/23/21 05:27 12/24/21 06:29 Meds: Medications Acetaminophen (Acetaminophen 325 Mg Tablet) 650 mg PO Q6HP PRN; Protocol PRN Reason: Per Pain Protocol/Fever > 101 Last Admin: 12/27/21 20:13 Dose: 650 mg Albuterol/Ipratropium (Ipratropium/Albuterol 3 Ml Ampul.Neb) 3 ml NEB Q4HRT PRN PRN Reason: Wheezing Allopurinol (Allopurinol 100 Mg Tablet) 100 mg PO BID [facility] Last Admin: 12/27/21 20:13 Dose: 100 mg Diphenhydramine HCl (Diphenhydramine 25 Mg Capsule) 25 mg PO Q6HP PRN PRN Reason: Itching Last Admin: 12/21/21 21:56 Dose: 25 mg Docusate Sodium (Docusate Sodium 100 Mg Capsule) 100 mg PO BID [facility] Last Admin: 12/27/21 20:13 Dose: 100 mg Enoxaparin Sodium (Enoxaparin 30 Mg/0.3 Ml Syringe) 30 mg SQ DAILY [facility] Last Admin: 12/27/21 07:56 Dose: 30 mg Lactulose (Lactulose 20 Gm/30 Ml Oral.Sarah) 10 gm PO DAILYP PRN PRN Reason: Constipation Last Admin: 12/27/21 20:17 Dose: 10 gm Morphine Sulfate (Morphine 2 Mg/Ml Vial) 2 mg IV Q4HP PRN; Protocol PRN Reason: Per Pain Protocol Last Admin: 12/20/21 20:10 Dose: 2 mg Ondansetron HCl (Ondansetron 4 Mg/2 Ml Vial) 4 mg IV Q4HP PRN; Protocol PRN Reason: Nausea And Vomiting Senna (Sennosides 1 Tablet) 2 tab PO HSP PRN PRN Reason: Constipation Sodium Chloride (0.9 % Sodium Chloride 10 Ml Syringe) 10 ml IV Q8 [facility] Last Admin: 12/28/21 06:41 Dose: 10 ml A/P Narrative A/P Narrative: A: *UTI: no growth *Sepsis: 2/2 above -afebrile o/n -Blood culture, no growth to date; Urine culture, no growth to date *Acute delirium likely from Dementia undiagnosed/underdiagnosed: likely at baseline *Dementia likely: -CT brain with mod atrophy *Adult failure to thrive/severe protein calorie malnutrition: Fat and muscle mass loss *Hypernatremia with dehydration: resolved *Hypophosphatemia: *HTN: on BB/ACEI -hypotensive, better after stopping meds P: -Awaiting placement. -abx stopped -cont hold coreg for low BP, ACEI already held -Adult protective service notified -Dietitian referral -pt/ot -CM for placement needs -ppx: Lovenox Time Spent With Patient Time: Total time spent is greater than 50% in coordination of care (as documented) at patient's floor/unit and/or counseling patient:
[2021-12-28] MEDS: ENOXAPARIN 30 MG/0.3 ML SYRINGE SQ SCH (08:48)
[2021-12-28] MEDS: DOCUSATE SODIUM 100 MG CAPSULE PO SCH ×2 (08:49→21:52)
[2021-12-28] MEDS: ALLOPURINOL 100 MG TABLET PO SCH ×2 (08:49→21:52)
--- NOTE | 2021-12-28 13:12 | Internal Med Progress Note ---
SUBJECTIVE Subjective Patient information: Note initiated : 12/28/21 at 1:08 pm Service Date, if different from initiated Date: [] Patient: Emerita Giron a 81 y/o F admitted on 12/20/21 for failure to thrive, confusion. Chief Complaint: [] Interval history: Ms. Giron is a 81 year old F no past medical history, presenting with weakness and confusions. The following history is severely limited by patient's clinical situations and lack of caregiver or family at the bedside. It was reported that patient's Drop of in the ED due to weakness and confusions. Patient is unable to give any further history. Tight patient is only making incomprehensible words upon questioning. It is unclear what is the patient's baseline mentations. Vital signs significant for tachycardia and tachypnea heart rate and rate of breathing in the 1 teens and mid 20s, respectively. Labs significant for leukocytosis with WBC 11.6. Serum sodium level 158. Serum chloride 120. Lactic acid 2.4. Urinalysis suggest the presence of urinary tract infections. Chest x-ray unremarkable. 12/21: Serum sodium level 154 this morning, down from 158 at the time of admissions. Serum ammonia level 32. Blood and urine cultures no growth to date. Patient is lethargic and nonverbal this afternoon. Pending physical therapy Occupational Therapy evaluation and treatment for placement pending. Continue 1/2NS@50cc/hr. Repeat serum sodium this afternoon @3pm. Adult protective service investigation pending. 12/22: Serum sodium level 149 this morning, down from 154 at the time of admissions. Serum phosphorous level 1.8. Blood and urine cultures no growth to date. P ending physical therapy Occupational Therapy evaluation and treatment for placement pending. Continue 1/2NS@50cc/hr. Repeat serum sodium this afternoon @3pm. Adult protective service investigation pending. 12/23: Serum sodium level 141 this morning. Serum phosphorous level 2.4. Blood and urine cultures no growth to date. Pending physical therapy Occupational Therapy evaluation and treatment for placement pending. Saline lock. Continue Rocephin for UTI. Transfer to med surg. 12/24 No overnight event or new complaints. Likely has dementia. Sodium within normal limits today. Phosphorus low. 12/25 No overnight event or new complaints. 12/26 No overnight event or new complaints. Awaiting placement. Confusion at baseline. 12/27 No changes. No overnight events. 12/28 Patient pleasant. Resting in bed. Awake. No new complaints. 12/29 Physical exam Head: Atraumatic, normal inspection. Eyes: normal appearance, no scleral icterus. Neck: full ROM Respiratory: no respiratory distress. Cardiovascular: normal rate and rhythm, S1, S2. GI/Abdominal: soft, nontender, no guarding. Extremities: full range of motion, nontender. Neurological: CN II-XII intact, intact motor, intact sensation. Psychiatric: normal mood. Skin: warm, normal color Constitutional Vitals: Vital Signs Temp Pulse Resp BP Pulse Ox O2 Del Method O2 Flow Rate 97.7 F 82 20 108/57 99 0 12/28/21 12:00 12/28/21 12:00 12/28/21 12:00 12/28/21 12:00 12/28/21 12:00 12/28/21 12:00 12/21/21 00:02 Period Temp Pulse Resp BP Sys/Beard Pulse Ox O2 Del Method O2 Flow Rate Last 24 Hr 97.1 F-98.8 F 79-107 20-20 97-129/57-64 94-99 Room Air-Room Air Intake and Output 12/27/21 12/28/21 12/28/21 21:59 05:59 13:59 Intake Total 240 0 120 Output Total 1 Balance 240 -1 120 Weight 43.409 kg Intake & Output: Intake & Output 12/27/21 12/28/21 12/28/21 21:59 05:59 13:59 Intake Total 240 0 120 Output Total 1 Balance 240 -1 120 Weight 43.409 kg Intake: Oral 240 0 120 Output: # of times incontinent of urine 1 Other: Meal Dinner Breakfast Percent of Meal Consumed 75% 100% # Voids 1 OBJ DATA Labs CBC & Chem 7: 12/23/21 05:27 12/24/21 06:29 Meds: Medications Acetaminophen (Acetaminophen 325 Mg Tablet) 650 mg PO Q6HP PRN; Protocol PRN Reason: Per Pain Protocol/Fever > 101 Last Admin: 12/27/21 20:13 Dose: 650 mg Albuterol/Ipratropium (Ipratropium/Albuterol 3 Ml Ampul.Neb) 3 ml NEB Q4HRT PRN PRN Reason: Wheezing Allopurinol (Allopurinol 100 Mg Tablet) 100 mg PO BID [facility] Last Admin: 12/28/21 08:49 Dose: 100 mg Diphenhydramine HCl (Diphenhydramine 25 Mg Capsule) 25 mg PO Q6HP PRN PRN Reason: Itching Last Admin: 12/21/21 21:56 Dose: 25 mg Docusate Sodium (Docusate Sodium 100 Mg Capsule) 100 mg PO BID [facility] Last Admin: 12/28/21 08:49 Dose: 100 mg Enoxaparin Sodium (Enoxaparin 30 Mg/0.3 Ml Syringe) 30 mg SQ DAILY [facility] Last Admin: 12/28/21 08:48 Dose: 30 mg Lactulose (Lactulose 20 Gm/30 Ml Oral.Sarah) 10 gm PO DAILYP PRN PRN Reason: Constipation Last Admin: 12/27/21 20:17 Dose: 10 gm Morphine Sulfate (Morphine 2 Mg/Ml Vial) 2 mg IV Q4HP PRN; Protocol PRN Reason: Per Pain Protocol Last Admin: 12/20/21 20:10 Dose: 2 mg Ondansetron HCl (Ondansetron 4 Mg/2 Ml Vial) 4 mg IV Q4HP PRN; Protocol PRN Reason: Nausea And Vomiting Senna (Sennosides 1 Tablet) 2 tab PO HSP PRN PRN Reason: Constipation Sodium Chloride (0.9 % Sodium Chloride 10 Ml Syringe) 10 ml IV Q8 [facility] Last Admin: 12/28/21 06:41 Dose: 10 ml A/P Assessment and plan (1) Acute UTI: Status: Acute (2) Dehydration: Status: Acute (3) Hypernatremia: Status: Acute (4) Delirium: Status: Acute (5) Adult failure to thrive: Status: Acute (6) Clinical sepsis: Status: Acute Narrative A/P Narrative: Assessment: 81-year-old female with a history of hypertension and probable dementia admitted for possible sepsis felt to be secondary to a UTI versus SIRS, hypernatremia, delirium and failure to thrive. The patient has improved with hospital treatment, currently awaiting placement. *Possible UTI: no growth *Possible sepsis: 2/2 above -afebrile o/n -Blood culture, no growth to date; Urine culture, no growth to date *Acute delirium likely from Dementia undiagnosed/underdiagnosed: likely at baseline *Dementia likely: -CT brain with mod atrophy *Adult failure to thrive/severe protein calorie malnutrition: Fat and muscle mass loss *Hypernatremia with dehydration: resolved *Hypophosphatemia: *HTN: on BB/ACEI -hypotensive, better after stopping meds P: -Awaiting placement. -abx stopped -cont hold coreg for low BP, ACEI already held -Adult protective service notified -Dietitian referral -pt/ot -CM for placement needs -ppx: Lovenox Time Spent With Patient Time: Total time spent is greater than 50% in coordination of care (as documented) at patient's floor/unit and/or counseling patient:
[2021-12-28] MEDS: ACETAMINOPHEN 325 MG TABLET PO PRN (21:51)
[2021-12-29] MEDS: 0.9 % SODIUM CHLORIDE 10 ML SYRINGE IV SCH (05:14)
[2021-12-29] MEDS: ALLOPURINOL 100 MG TABLET PO SCH (09:21)
[2021-12-29] MEDS: ENOXAPARIN 30 MG/0.3 ML SYRINGE SQ SCH (09:21)
[2021-12-29] MEDS: DOCUSATE SODIUM 100 MG CAPSULE PO SCH (09:21)
--- NOTE | 2021-12-29 12:11 | Discharge Summary ---
Discharge Provider Provider IMPORTANT FOLLOW-UP INFORMATION FOR PCP: Patient information: Note initiated : 12/29/21 at 12:10 pm Service Date, if different from initiated Date: [] Patient: Emerita Giron a 81 y/o F admitted on 12/20/21 for failure to thrive, confusion. Chief Complaint: [] Date of admission: 12/20/21 19:09 Discharge date: 12/29/21 Primary care physician: Weston Dempsey Consults: 12/20/21 Consult to Physician [CONS] Stat Comment: Consulting Provider: Jerson Peraza Reason For Exam: Physician to Consult COURSE Hospital Course Hospital course: Ms. Giron is a 81 year old F no past medical history, presenting with weakness and confusions. The following history is severely limited by patient's clinical situations and lack of caregiver or family at the bedside. It was reported that patient's Drop of in the ED due to weakness and confusions. Patient is unable to give any further history. Tight patient is only making incomprehensible words upon questioning. It is unclear what is the patient's baseline mentations. Vital signs significant for tachycardia and tachypnea heart rate and rate of breathing in the 1 teens and mid 20s, respectively. Labs significant for leukocytosis with WBC 11.6. Serum sodium level 158. Serum chloride 120. Lactic acid 2.4. Urinalysis suggest the presence of urinary tract infections. Chest x-ray unremarkable. 12/21: Serum sodium level 154 this morning, down from 158 at the time of admissions. Serum ammonia level 32. Blood and urine cultures no growth to date. Patient is lethargic and nonverbal this afternoon. Pending physical therapy Occupational Therapy evaluation and treatment for placement pending. Continue 1/2NS@50cc/hr. Repeat serum sodium this afternoon @3pm. Adult protective service investigation pending. 12/22: Serum sodium level 149 this morning, down from 154 at the time of admissions. Serum phosphorous level 1.8. Blood and urine cultures no growth to date. Pending physical therapy Occupational Therapy evaluation and treatment for placement pending. Continue 1/2NS@50cc/hr. Repeat serum sodium this afternoon @3pm. Adult protective service investigation pending. 12/23: Serum sodium level 141 this morning. Serum phosphorous level 2.4. Blood and urine cultures no growth to date. Pending physical therapy Occupational Therapy evaluation and treatment for placement pending. Saline lock. Continue Rocephin for UTI. Transfer to med surg. 12/24 No overnight event or new complaints. Likely has dementia. Sodium within normal limits today. Phosphorus low. 12/25 No overnight event or new complaints. 12/26 No overnight event or new complaints. Awaiting placement. Confusion at baseline. 12/27 No changes. No overnight events. 12/28 Patient pleasant. Resting in bed. Awake. No new complaints. 12/29 Discharged to low intensity rehab. Physical exam Head: Atraumatic, normal inspection. Eyes: normal appearance, no scleral icterus. Neck: full ROM Respiratory: no respiratory distress. Cardiovascular: normal rate and rhythm, S1, S2. GI/Abdominal: soft, nontender, no guarding. Extremities: full range of motion, nontender. Neurological: CN II-XII intact, intact motor, intact sensation. Psychiatric: Cognitive impairment, does not appear anxious. Skin: warm, normal color Discharge diagnosis: Possible sepsis secondary to UTI Secondary discharge diagnosis: Delirium Dementia Generalized weakness Time Spent with Patient Time attestation: Total time spent providing and/or coordinating discharge services: Time spent: Greater than 30 minutes EXAM Constitutional Vitals: Temp Pulse Resp BP Pulse Ox O2 Del Method O2 Flow Rate 97.1 F 64 14 117/64 96 0 12/29/21 07:43 12/29/21 07:43 12/29/21 07:43 12/29/21 07:43 12/29/21 07:43 12/29/21 07:43 12/21/21 00:02 Discharge Plan Patient/Caregiver Discharge Instructions Activity: increase activity as tolerated Diet: Regular Diet Activity Restrictions/Additional Instructions: Monitor blood pressure twice daily and bring log to PCP. Stopped blood pressure medications for hypertension. Prescriptions: Continued allopurinol 100 mg tablet 100 mg PO BID Discontinued carvedilol 12.5 mg Tablet 12.5 mg PO BID Rx Instructions: must administer with a meal/food lisinopril 10 mg Tablet 10 mg PO QDAY Follow Up Plan Follow up with: Weston Dempsey DO [Primary Care Provider] - Patient Disposition: [facility] Prognosis: Fair Rehab Potential: Fair I certify that the patient requires SNF services: Yes Overall status at discharge: patient is progressing back to baseline Discharge Orders: Discharge Order (Routine); Ordered 12/29/21 Ordered By: Rohit Levy
== END 2021-12-29 14:23 | DRG 872 ==
LOC: ED 11:58 → ICU 19:09 → MEDSUR 12-23 15:38
PROVIDERS: ADMIT Internal Medicine; ATTEND Internal Medicine